=== PATIENT | male | born 1950 | race Two or more races ===

== ENCOUNTER 2018-09-24 11:11 | Inpatient (IN) | payer MEDICARE, OTHER ==
[~2018-09-24] VITALS: Ht 177.8 cm; Wt 83.9 kg
--- NOTE | 2018-09-24 11:30 | NUR ---
CATRINA 39N FROM HOME FOR LOW BS 39MG/DL, 250 ML D10 GIVEN IN THE FIELD, NEW MP=594LG/DL. PT STATES DIZZINESS AND PAIN 03/14. ABRASION TO RIGHT SIDE OF FACE. LIVES ALONE. 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 NO ACUTE DISTRESS NOTED. READY FOR EVAL.
[2018-09-24 12:07] LABS: BASOPHILS # (AUTO) 0.1 /CMM (0.0-0.2); BASOPHILS % (AUTO) 0.6 % (0.0-2.0); HEMATOCRIT 49 % (39-51); HEMOGLOBIN 17.6 g/dL (13.5-17.5); LYMPHOCYTES # (AUTO) 0.4 /CMM (0.8-4.8); LYMPHOCYTES % (AUTO) 4.2 % (20.0-44.0); MEAN CORPUSCULAR HGB CONC 36 g/dl (31.0-36.0); MEAN CORPUSCULAR VOLUME 92 fL (80-96); MONOCYTES # (AUTO) 0.7 /CMM (0.1-1.30); MONOCYTES % (AUTO) 6.8 % (2.0-12.0); NEUTROPHILS # (AUTO) 8.8 /CMM (1.8-8.9); NEUTROPHILS % (AUTO) 88.4 % (43.0-81.0); PLATELET COUNT (AUTO) 228 /CMM (150-450); RED BLOOD CELL COUNT(AUTO) 5.31 MIL/uL (4.5-6.0); WHITE BLOOD COUNT (AUTO) 9.9 K/uL (4.3-11.0)
[2018-09-24 12:20] LABS: ALANINE AMINOTRANSFERASE 36 U/L (12-78); ALBUMIN 4.2 g/dL (3.4-5.0); ALCOHOL, BLOOD < 3 mg/dL (0-0); ALKALINE PHOSPHATASE 73 U/L (46-116); ASPARTATE AMINOTRANSFERASE 31 U/L (15-37); BILIRUBIN,DIRECT 0.2 mg/dL (0.0-0.2); BILIRUBIN,TOTAL 0.6 mg/dL (0.2-1.0); CALCIUM, SERUM 10.7 mg/dL (8.5-10.1); CARBON DIOXIDE 34 mmol/L (21-32); CHLORIDE 89 mmol/L (98-107); CREATININE 1.8 mg/dL (0.6-1.3); POTASSIUM 3.2 mmol/L (3.5-5.1); SODIUM SERUM 134 mmol/L (136-145); TOTAL PROTEIN, SERUM 8.8 g/dL (6.4-8.2); UREA NITROGEN, BLOOD 64 mg/dL (7-18)
[2018-09-24 12:24] LABS: GLUCOSE 50 mg/dL (74-106)
--- NOTE | 2018-09-24 12:26 | NUR ---
ORDERED FOOD TRAY PER
--- NOTE | 2018-09-24 12:29 | NUR ---
PT TAKEN TO RADIOLOGY VIA C[facility]
[2018-09-24 12:47] LABS: THYROID STIMULATING HORMONE 3.403 uIU/mL (0.358-3.74)
--- NOTE | 2018-09-24 12:53 | NUR ---
PT BACK FROM [facility]. [facility] A[facility]. PROVIDED FOOD TRAY
[2018-09-24] MEDS ORDERED: INSU100V7 SQ (13:40)
[2018-09-24] MEDS ORDERED: INSU100I4 SQ (13:40)
[2018-09-24] MEDS ORDERED: METF-440 PO (13:40)
[2018-09-24] MEDS ORDERED: ATEN25TA PO (13:40)
--- NOTE | 2018-09-24 13:43 | NUR ---
GOT BED 312-2 RN IS BETZAIDA
[2018-09-24] MEDS ORDERED: DEXTROSE 50%-WATER 50 ML DISP.SYRIN IVP ONE (14:30)
[2018-09-24] MEDS ORDERED: POTASSIUM CHLORIDE 20 MEQ TAB.PRT.SR PO ONE ×2 (14:30→14:45)
[2018-09-24] MEDS ORDERED: IV D5/0.45 NACL 500 ML IV ONE (14:30)
[2018-09-24] MEDS ORDERED: DEXTROSE 50%-WATER 50 ML DISP.SYRIN ONE (14:45)
--- NOTE | 2018-09-24 14:48 | NUR ---
Patient is resting comfortably in bed with eyes closed. Easily aroused. VSS
[2018-09-24] MEDS ORDERED: ASPIRIN EC 325 MG TABLET.DR PO ONE (15:00)
[2018-09-24] MEDS ORDERED: ASPIRIN EC 325 MG TABLET.DR PO SCH (15:00)
--- NOTE | 2018-09-24 15:49 | NUR ---
REPORT GIVEN TO THA HUSTON FOR 312-2 TELE, AND PT TRANSFERRED TO FLOOR
--- NOTE | 2018-09-24 16:00 | NUR ---
MS NET ARCHITECT NOTE RECEIVED PT FROM ER VIA [facility] WITH DX OF HYPOGLYCEMIA. PT IS ALERT AND ORIENTED X4, DENIES N/V, SOB. PT STATES HE HAS PAIN ON THE RIGHT SIDE OF HIS FACE AND IS S/P UNWITNESSED FALL AT HOME "LAST NIGHT". PT ALSO REPORTS CHEST PAIN 7/10 THAT IS DULL, TIGHT, AND SPREADS FROM NIPPLE TO NIPPLE. PT PLACED ON DRYING RACK CHANGER AND IS SINUS TACHYCARDIA WITH HR 110. PT HAS TROPONIN DRAWN IN ER THAT IS NORMAL AND LAB IS AT THE BEDSIDE FOR A SECOND DRAW. PT HAS A LEFT AC #18G IV THAT IS PATENT, CLEAN, DRY AND INTACT. WOUND DOCUMENTATION COMPLETED PER PROTOCOL AND WOUND CONSULT ORDER PLACED. BELONGINGS REVIEWED. UNIT ORIENTATION PROVIDED INCLUDING USE OF CALL LIGHT AND INFORMED PT TO NOT EXIT THE BED WITHOUT A STAFF ASSISTANCE. BED IS LOCKED AND IN LOWEST POSITION, SIDE RAILS UP X2, BED ALARM ON, CALL LIGHT AND POSSESSIONS WITHIN REACH. PT VERBALIZED AGREEMENT AND UNDERSTANDING. AWAITING ADMISSION ORDERS FROM FREDRICK DEL CID NP.
--- NOTE | 2018-09-24 16:02 | NUR ---
MS RN NOTE INFORMED FREDRICK DEL CID NP OF PT ARRIVAL TO FLOOR AND NEED FOR ADMISSION ORDERS, AWAITING RESPONSE.
--- NOTE | 2018-09-24 16:09 | NUR ---
MS RN NOTE REPEAT 12 LEAD EKG ORDERED PER PROTOCOL.
--- NOTE | 2018-09-24 16:45 | NUR ---
MS PRODUCTION WOOD CRAFTSMAN ORDERS PER FREDRICK DEL CID NP SHE WILL WORK ON ADMISSION ORDERS. ORDERS RECEIVED FOR CARDIAC DIET AND ACCU CHECKS Q2H FOR NOW.
[2018-09-24] MEDS: BLOOD SUGAR DIAGNOSTIC 1 EACH STRIP IN SCH ×2 (17:00→21:11)
--- NOTE | 2018-09-24 18:07 | NUR ---
MS RN NOTE CONTACTED FREDRICK DEL CID NP REGARDING CP. AWAITING RESPONSE.
--- NOTE | 2018-09-24 18:17 | NUR ---
MS RN NOTE RECEIVED ORDERS FOR NITRO SL FOR CP FROM FREDRICK DEL CID NP. ORDERED NOTED AND CARRIED OUT.
[2018-09-24] MEDS: NITROGLYCERIN 0.4 MG/TAB BOTTLE SL PRN ×2 (18:29→18:46)
--- NOTE | 2018-09-24 18:29 | NUR ---
MS RN NOTE NITROGLYCERIN SL ADMINISTERED ORDERED FOR CP RATED 6/10. BP: 133/79, HR: 110. WILL CONTINUE TO MONITOR.
--- NOTE | 2018-09-24 18:47 | NUR ---
MS RN NOTE SECOND NITROGLYCERIN SL ADMINISTERED FOR CP 01/12. BP: 123/84.
--- NOTE | 2018-09-24 19:01 | NUR ---
MS RN NOTE INFORMED FREDRICK DEL CID NP REGARDING PT CP AFTER NITRO SL X2. PT STATES THAT HIS PAIN IS WORSE WITH COUGHING AND DEEP INHALATION AND IS 5/10. PT IS ALSO S/P UNWITNESSED FALL AT HOME PRIOR TO ADMISSION. PT HAS TWO NEGATIVE TROPONIN AND SECOND 12 LEAD EKG THAT SHOWS SINUS TACHYCARDIA. AWAITING RESPONSE.
--- NOTE | 2018-09-24 19:05 | NUR ---
MS RN CLOSING NOTE PT IN BED, ALERT AND ORIENTED X4. DENIES SOB, N/V. STATES THAT HE HAS CP THAT IS 5/10, DULL AND SPREADS BETWEEN BOTH NIPPLES AND DOES NOT RADIATE. PT HAS TWO NEGATIVE TROPONIN AND A SECOND 12 LEAD EKG THAT SHOWS SINUS TACHYCARDIA. LATEST BP IS 133/94, HR: 110. PT IS ON FURNACE MECHANIC ALSO WITH SINUS TACHYCARDIA, HR 100-110. LEFT AC #18G IV IS COMPLETING D5 1/2 NS FROM ER. LATEST ACCU CHECK IS 321. ALL NEEDS ATTENDED TO. BED IS LOCKED AND IN LOWEST POSITION, SIDE RAILS UP X2, BED ALARM ON, CALL LIGHT AND POSSESSIONS WITHIN REACH. PT IS STILL PENDING ADMISSION ORDERS FROM FREDRICK DEL CID NP. WILL ENDORSE TO JETTING MACHINE OPERATOR NURSE FOR CONTINUITY OF CARE.
--- NOTE | 2018-09-24 19:09 | NUR ---
MS RN NOTE FREDRICK SOTO NP AWARE OF PT CP. PER FREDRICK SHE IS REVIEWING CHART NOW FOR ADMISSION ORDERS.
[2018-09-24] MEDS ORDERED: IV D5/ 0.9% NACL 1,000 ML IV PRN (19:30)
[2018-09-24] MEDS ORDERED: MAGNESIUM HYDROXIDE 30 ML UDC PO PRN (19:30)
[2018-09-24] MEDS ORDERED: ACETAMINOPHEN 325 MG TABLET PO PRN (19:30)
[2018-09-24] MEDS ORDERED: Z GUARD REMEDY 2 OZ OINT TP PRN (19:30)
[2018-09-24] MEDS ORDERED: ONDANSETRON HCL/PF 4 MG/2 ML VIAL IVP PRN (19:30)
--- NOTE | 2018-09-24 19:30 | NUR ---
RN NOTES RECEIVED PT. AWAKE ON BED, A/OX3, HAS FACIAL DROOPS... PATIENT HAS REYNOLDS'S PALSY, ST ON TELE MONITOR HR-104-110, DENIES PAIN, NO SOB, CALL LIGHT WITHIN REACH, SIDERAILSUPX2, CONTINUE TO MONITOR
[2018-09-24 20:00] VITALS: BP 146/98
[2018-09-24 20:24] VITALS: BP 146/98
[2018-09-24] MEDS: IV NS 0.9% 1,000 ML IV PRN (21:11)
[2018-09-24] MEDS: HEPARIN SODIUM, PORCINE 5000 UNITS/1 ML VIAL SQ SCH (21:12)
--- NOTE | 2018-09-24 21:36 | NUR ---
RN NOTES ECOTRIN 162MG POX1 WAS NOT GIVEN EARLIER BY THE DAYSHIFT GOT AN ORDER FROM FREDRICK DEL CID TO REORDER AND GIVE IT TONIGHT... ORDER NOTED AND CARRIED OUT
[2018-09-24] MEDS ORDERED: ASPIRIN EC 81 MG TABLET.DR PO ONE (22:00)
[2018-09-24] MEDS: GABAPENTIN 100 MG CAPSULE PO SCH (22:11)
--- NOTE | 2018-09-25 | NUR ---
RN NOTES INFORMED BRIDGETTE ALFORD THE RESULT OF STAT GLUCOSE RANDOM 658, PATIENT IS ON ACCU-CHECK Q 4HRS BUT NO COVERAGE BECAUSE PATIENT DX. IS HYPOGLYCEMIA.. ROCÍO ANGELES CHANGE THE ORDER TO MILD SLIDING SCALE, ORDER NOTED AND CARRIED OUT
[2018-09-25 00:12] VITALS: BP 133/69
[2018-09-25] MEDS ORDERED: BLOOD SUGAR DIAGNOSTIC 1 EACH STRIP IN SCH (00:30)
[2018-09-25] MEDS ORDERED: DEXTROSE 50%-WATER 50 ML DISP.SYRIN IV PRN ×2 (00:30→07:00)
[2018-09-25] MEDS: INSULIN REGULAR, HUMAN 100 UNIT/ML 3 ML VIAL SQ PRN ×5 (00:39→18:15)
[2018-09-25] MEDS: ZOLPIDEM TARTRATE 5 MG TABLET PO PRN (00:40)
--- NOTE | 2018-09-25 00:40 | NUR ---
RN NOTES BLOOD SUGAR WAS MORE THAN 600, INFORMED MD- 10 UNITS OF REGULAR INSULIN WAS GIVEN, PROTOCOL INITIATED
[2018-09-25] MEDS: BLOOD SUGAR DIAGNOSTIC 1 EACH STRIP IN SCH ×2 (01:00→05:23)
--- NOTE | 2018-09-25 01:00 | NUR ---
RN NOTES ACCU CHECK WAS CHANGE TO AC&HS
[2018-09-25] MEDS: NITROGLYCERIN 0.4 MG/TAB BOTTLE SL PRN (04:17)
[2018-09-25 04:42] VITALS: BP 146/77
[2018-09-25] MEDS: IV NS 0.9% 1,000 ML IV PRN ×2 (05:23→15:31)
[2018-09-25 06:27] LABS: BASOPHILS % (AUTO) 0.1 % (0.0-2.0); HEMATOCRIT 40 % (39-51); HEMOGLOBIN 13.9 g/dL (13.5-17.5); LYMPHOCYTES # (AUTO) 0.8 /CMM (0.8-4.8); LYMPHOCYTES % (AUTO) 8.8 % (20.0-44.0); MEAN CORPUSCULAR HGB CONC 35 g/dl (31.0-36.0); MEAN CORPUSCULAR VOLUME 94 fL (80-96); MONOCYTES # (AUTO) 0.8 /CMM (0.1-1.30); MONOCYTES % (AUTO) 9.1 % (2.0-12.0); NEUTROPHILS # (AUTO) 7.6 /CMM (1.8-8.9); PLATELET COUNT (AUTO) 158 /CMM (150-450); RED BLOOD CELL COUNT(AUTO) 4.25 MIL/uL (4.5-6.0); WHITE BLOOD COUNT (AUTO) 9.2 K/uL (4.3-11.0)
--- NOTE | 2018-09-25 06:40 | NUR ---
THA NOTES INFORMED BRIDGETTE ALFORD REGARDING PT. BLOOD SUGAR OF 577 .. COVERED WITH 10UNITS OF REGULAR INSULIN... JUST WAITING FOR THE RESULT OF THE STAT GLUCOSE RANDOM... BRIDGETTE ALFORD ORDERED TO INCREASE TO MODERATE SLIDING SCALE-ORDER NOTED AND CARRIED OUT
--- NOTE | 2018-09-25 07:00 | NUR ---
RN NOTES ENDORSED TO DAYSHIFT NURSE .. STILL WAITING FOR THE GLUCOSE RANDOM RESULT. PT. DENIES PAIN, NO SOB, PT. NEEDS ATTENDED
[2018-09-25 07:05] LABS: CALCIUM, SERUM 8.7 mg/dL (8.5-10.1); CREATININE 2.7 mg/dL (0.6-1.3); MAGNESIUM 2.1 mg/dL (1.8-2.4); PHOSPHORUS 3.5 mg/dL (2.5-4.9); POTASSIUM 3.7 mmol/L (3.5-5.1)
--- NOTE | 2018-09-25 07:18 | NUR ---
RN OPENING NOTES RECEIVED PATIENT IN BED RESTING. A/OX3-4, ABLE TO MAKE NEEDS KNOWN. RIGHT SIDED WEAKNESS AND FACIAL DROOP NOTED, PATIENT HAS REYNOLDS'S PALSY. NOT IN ANY FORM OF DISTRESS, NO SOB. DENIED PAIN OR DISCOMFORT AT THIS TIME. IV ACCESS INTACT AND PATENT. KEPT PATIENT SAFE AND COMFORTABLE. BED IN LOW/LOCKED POSITION, SIDERAILS UPX2, CALL LIGHT IN REACH. WILL CONTINUE TO MONITOR ACCORDINGLY.
[2018-09-25 08:00] VITALS: BP 154/107
[2018-09-25] MEDS ORDERED: INSULIN GLARGINE, 100 UNIT/ML CARTRIDGE SQ ONE (08:00)
--- NOTE | 2018-09-25 08:14 | NUR ---
received critical value of blood glucose of 565. notified Jessi Hernandez NP. new orders noted and will carry out. orders: 15 unit regular insulin SQ and recheck in 30mins and 15 units Lantus SQ one time.
[2018-09-25] MEDS: GABAPENTIN 100 MG CAPSULE PO SCH (08:31)
[2018-09-25] MEDS: MECLIZINE HCL 12.5 MG TABLET PO PRN (08:31)
[2018-09-25] MEDS: HYDROCODONE/APAP 5/325MG 1 EACH TABLET PO PRN ×2 (08:32→16:44)
[2018-09-25] MEDS: ATENOLOL 50 MG TABLET PO SCH (08:33)
[2018-09-25] MEDS: HEPARIN SODIUM, PORCINE 5000 UNITS/1 ML VIAL SQ SCH ×2 (08:34→21:34)
[2018-09-25] MEDS ORDERED: METFORMIN 500 MG TABLET PO SCH (09:00)
--- NOTE | 2018-09-25 09:10 | NUR ---
RN NOTES BS rechecked 492.. Jessi Hernandez NP notified, "just monitor blood sugar".
[2018-09-25] MEDS: BLOOD SUGAR DIAGNOSTIC 1 EACH STRIP VI SCH ×4 (09:19→21:35)
--- NOTE | 2018-09-25 10:00 | NUR ---
iv acces on left ac not patent, removed iv, applied pressure. no complications. inserted new iv access on left forearm 22 gauge, intact and patent.
--- NOTE | 2018-09-25 14:08 | NUR ---
URINE COLLECTED, CALLED LAB FOR ORIGINATION SPECIALIST.
[2018-09-25] MEDS: CIPROFLOXACIN HCL 0.3% 5 ML BOTTLE RIGHTEYE SCH ×3 (15:28→21:43)
[2018-09-25 16:34] VITALS: BP 149/70
[2018-09-25 18:45] LABS: APPEARANCE,URINE SL CLOUDY (CLEAR); BILIRUBIN,URINE NEGATIVE (NEGATIVE); BLOOD, URINE NEGATIVE Ery/uL (NEGATIVE); COLOR,URINE YELLOW (YELLOW); KETONES,URINE NEGATIVE (NEGATIVE); LEUKOCYTE ESTERASE ,URINE NEGATIVE (NEGATIVE); NITRITE, URINE NEGATIVE (NEGATIVE); PH,URINE 5.5 (5.0-8.0); PROTEIN,URINE NEGATIVE (NEGATIVE); UGLUCOSE 3+ mg/dL (NEGATIVE); UROBILINOGEN,URINE 0.2 EU/dL (0.2)
--- NOTE | 2018-09-25 18:53 | NUR ---
RN CLOSING NOTES PATIENT IN BED RESTING. ALL NEEDS ATTENDED AND PROVIDED. ALL DUE MEDICATIONS ADMINISTERED ORDERED. KEPT PATIENT SAFE AND COMFORTABLE. BED IN LOW/LOCKED POSIITON, SIDERAILS UPX2 CALL LIGHT IN REACH. WILL ENDORSED TO NIGHT RN FOR ASUNCION.
[2018-09-25 19:21] LABS: BACTERIA,URINE None seen /HPF (None Seen); RBC,URINE 0-2 /HPF (0-2); SQUAMOUS EPITHELIAL CELL,UR Rare /HPF (None Seen); WBC,URINE 0-2 /HPF (0-3)
--- NOTE | 2018-09-25 19:30 | NUR ---
RN NOTES RECEIVED PT. SLEEPING BUT AROUSABLE, FACIAL DROOPS NOTED, PT. HAS REYNOLDS'S PALSY, DENIES PAIN, NO SOB, CALL LIGHT WITHIN REACH, SIDERAILSUPX2, CONTINUE TO MONITOR
[2018-09-25 20:00] VITALS: BP 114/68
[2018-09-25] MEDS: *INSULIN REGULAR(HUMULIN R)HUM 100 UNIT/ML VIAL SQ PRN (21:48)
[2018-09-25] MEDS: INSULIN GLARGINE, 100 UNIT/ML CARTRIDGE SQ SCH (21:50)
[2018-09-25 23:07] LABS: CREATININE, URINE 50.8 MG/DL (30.0-125.0); URINE TOTAL PROTEIN 20.2 mg/dL (0-11.9)
[2018-09-26] MEDS: CIPROFLOXACIN HCL 0.3% 5 ML BOTTLE RIGHTEYE SCH ×6 (02:06→22:23)
[2018-09-26] MEDS: HYDROCODONE/APAP 5/325MG 1 EACH TABLET PO PRN (04:15)
--- NOTE | 2018-09-26 04:50 | NUR ---
RN NOTES COMPLAINED OF TERRIBLE HEADACHE AND ASKED FOR NORCO, NORCO 5/325MG PO GIVEN ORDERED, V/S STABLE
[2018-09-26] MEDS: INSULIN REGULAR, HUMAN 100 UNIT/ML 3 ML VIAL SQ PRN ×3 (06:22→17:41)
[2018-09-26 06:40] LABS: BASOPHILS % (AUTO) 0.3 % (0.0-2.0); EOSINOPHILS % (AUTO) 1.1 % (0.0-6.0); HEMATOCRIT 36 % (39-51); HEMOGLOBIN 12.6 g/dL (13.5-17.5); LYMPHOCYTES # (AUTO) 1.7 /CMM (0.8-4.8); LYMPHOCYTES % (AUTO) 26.2 % (20.0-44.0); MEAN CORPUSCULAR HGB CONC 36 g/dl (31.0-36.0); MEAN CORPUSCULAR VOLUME 93 fL (80-96); MONOCYTES # (AUTO) 0.9 /CMM (0.1-1.30); MONOCYTES % (AUTO) 14.7 % (2.0-12.0); NEUTROPHILS # (AUTO) 3.7 /CMM (1.8-8.9); NEUTROPHILS % (AUTO) 57.7 % (43.0-81.0); PLATELET COUNT (AUTO) 159 /CMM (150-450); RED BLOOD CELL COUNT(AUTO) 3.82 MIL/uL (4.5-6.0); WHITE BLOOD COUNT (AUTO) 6.4 K/uL (4.3-11.0)
--- NOTE | 2018-09-26 06:45 | NUR ---
RN NOTES AWAKE PT. DENIES PAIN, NO SOB, MORNING CARE RENDERED, CALL LIGHT WITHIN REACH, SIDERAILSUPX2, PT. NEEDS ATTENDED
[2018-09-26] MEDS: BLOOD SUGAR DIAGNOSTIC 1 EACH STRIP VI SCH ×4 (06:53→22:28)
[2018-09-26 07:07] LABS: THYROID STIMULATING HORMONE 4.862 uIU/mL (0.358-3.74); URIC ACID 8.1 mg/dL (2.6-7.2)
[2018-09-26 07:24] LABS: BILIRUBIN,TOTAL 0.3 mg/dL (0.2-1.0); CALCIUM, SERUM 8.3 mg/dL (8.5-10.1); CREATININE 2.4 mg/dL (0.6-1.3); MAGNESIUM 2.7 mg/dL (1.8-2.4); PHOSPHORUS 3.5 mg/dL (2.5-4.9); TOTAL PROTEIN, SERUM 6.2 g/dL (6.4-8.2)
[2018-09-26 07:33] LABS: POTASSIUM 2.8 mmol/L (3.5-5.1)
--- NOTE | 2018-09-26 07:49 | NUR ---
MS RN OPENING NOTES RECEIVED PATIENT IN STABLE CONDITION. IN NO APPARENT DISTRESS. BEDSIDE RAILS ARE UPX2. BED IS LOCKED AND LOWERED. CALL LIGHT IS WITHIN REACH. IV LINE IS INTACT AND PATENT. WILL CONTINUE TO MONITOR PATIENT.
[2018-09-26 08:00] VITALS: BP 125/86
[2018-09-26] MEDS: ATENOLOL 50 MG TABLET PO SCH (09:31)
[2018-09-26] MEDS: POTASSIUM CHLORIDE 20 MEQ TAB.PRT.SR PO SCH ×3 (09:31→11:01)
[2018-09-26] MEDS: GABAPENTIN 100 MG CAPSULE PO SCH (09:32)
[2018-09-26] MEDS: HEPARIN SODIUM, PORCINE 5000 UNITS/1 ML VIAL SQ SCH ×2 (09:37→21:42)
[2018-09-26] MEDS: INSULIN GLARGINE, 100 UNIT/ML CARTRIDGE SQ SCH ×2 (09:41→22:27)
--- NOTE | 2018-09-26 10:35 | NUR ---
WOUND CARE CONSULT: PT PRESENTS WITH DRY ABRASION TO RT CHEEK AND BLANCHABLE REDNESS TO SACRUM AND RT FOOT, PRESENT ON ADMISSION. PT INDEPENDENT WITH BED MOBILITY AND CONTINENT. PT GETS UP TO BATHROOM WITH ASSISTANCE. CURRENT LITO SCORE IS 18. WILL SEE PRN. Addendum: 09/26/18 at 1036 by MC ZAVALA WNDNU Amended: Links added.
[2018-09-26 16:07] VITALS: BP 121/76
--- NOTE | 2018-09-26 18:40 | NUR ---
MS RN CLOSING NOTES PATIENT IS IN STABLE CONDITION. IN NO APPARENT DISTRESS. BEDSIDE RAILS ARE UPX2. BED IS LOCKED AND LOWERED. CALL LIGHT IS WITHIN REACH. IV LINE IS INTACT AND PATENT. WILL ENDORSE CARE TO CERTIFIED FRAUD EXAMINER NURSE FOR ASUNCION.
[2018-09-26] MEDS: IV NS 0.9% 1,000 ML IV PRN (19:24)
--- NOTE | 2018-09-26 19:40 | NUR ---
RN NOTES RECEIVED PATIENT IN STABLE CONDITION. IN NO APPARENT DISTRESS. ALL SAFETY MEASURES IN PLACED, BED IN LOW LOCK POSITION, BEDSIDE RAILS ARE UPX2. CALL LIGHT IS WITHIN REACH. IV LINE IS INTACT AND PATENT. WILL CONTINUE TO MONITOR ACCORDINGLY.
[2018-09-26 20:00] VITALS: BP 144/90
[2018-09-26] MEDS: *INSULIN REGULAR(HUMULIN R)HUM 100 UNIT/ML VIAL SQ PRN (22:26)
[2018-09-27] MEDS: ZOLPIDEM TARTRATE 5 MG TABLET PO PRN (00:36)
[2018-09-27] MEDS: CIPROFLOXACIN HCL 0.3% 5 ML BOTTLE RIGHTEYE SCH ×3 (02:21→09:05)
[2018-09-27] MEDS: HYDROCODONE/APAP 5/325MG 1 EACH TABLET PO PRN ×2 (02:55→10:33)
[2018-09-27] MEDS: IV NS 0.9% 1,000 ML IV PRN (04:05)
[2018-09-27 06:23] LABS: BASOPHILS % (AUTO) 0.5 % (0.0-2.0); EOSINOPHILS % (AUTO) 1.5 % (0.0-6.0); HEMATOCRIT 37 % (39-51); LYMPHOCYTES # (AUTO) 1.6 /CMM (0.8-4.8); LYMPHOCYTES % (AUTO) 25.7 % (20.0-44.0); MEAN CORPUSCULAR HGB CONC 35 g/dl (31.0-36.0); MEAN CORPUSCULAR VOLUME 93 fL (80-96); MONOCYTES # (AUTO) 0.9 /CMM (0.1-1.30); MONOCYTES % (AUTO) 14.3 % (2.0-12.0); NEUTROPHILS # (AUTO) 3.7 /CMM (1.8-8.9); PLATELET COUNT (AUTO) 180 /CMM (150-450); RED BLOOD CELL COUNT(AUTO) 3.99 MIL/uL (4.5-6.0); WHITE BLOOD COUNT (AUTO) 6.3 K/uL (4.3-11.0)
[2018-09-27] MEDS: BLOOD SUGAR DIAGNOSTIC 1 EACH STRIP VI SCH ×2 (06:28→12:33)
[2018-09-27] MEDS: INSULIN REGULAR, HUMAN 100 UNIT/ML 3 ML VIAL SQ PRN ×2 (06:31→12:35)
[2018-09-27 06:40] LABS: CALCIUM, SERUM 8.4 mg/dL (8.5-10.1); CREATININE 1.6 mg/dL (0.6-1.3); MAGNESIUM 2.6 mg/dL (1.8-2.4); PHOSPHORUS 2.8 mg/dL (2.5-4.9); POTASSIUM 3.9 mmol/L (3.5-5.1)
--- NOTE | 2018-09-27 07:27 | NUR ---
RN NOTES RECEIVED PATIENT IN STABLE CONDITION. IN NO APPARENT DISTRESS. ALL SAFETY MEASURES IN PLACED, BED IN LOW LOCK POSITION, BEDSIDE RAILS ARE UPX2. CALL LIGHT IS WITHIN REACH. IV LINE IS INTACT AND PATENT. ENDORSED TO AM NURSE FOR CONTINUITY OF CARE.
--- NOTE | 2018-09-27 07:30 | NUR ---
MS RN NOTES PATIENT RECEIVED RESTING INSIDE ROOM. AWAKE, ALERT AND ORIENTED, VERBALLY RESPONSIVE AND RESPONDS TO VERBAL AND TACTILE STIMULI. BREATHING EVEN AND UNLABORED. NO ACUTE DISTRESS AT THIS TIME. DENIES ANY PAIN OR DISCOMFORT. IV INTACT AND PATENT. NO CHANGES IN LOC NOTED AT THIS TIME. CONTINUE ON FLUID RESTRICTION OF 1000cc/DAY. PATIENT AWARE AND VERBALIZED UNDERSTANDING. WILL CONTINUE TO MONITOR. BED LOCKED AND IN LOW POSITION. BILATERAL UPPER SIDE RAILS UP AND LOCKED. CALL LIGHT WITHIN EASY REACH
[2018-09-27 08:00] VITALS: BP 174/108
[2018-09-27] MEDS: GABAPENTIN 100 MG CAPSULE PO SCH (08:49)
[2018-09-27 08:50] VITALS: BP 174/108
[2018-09-27] MEDS: ATENOLOL 50 MG TABLET PO SCH (08:50)
[2018-09-27] MEDS: INSULIN GLARGINE, 100 UNIT/ML CARTRIDGE SQ SCH (08:52)
[2018-09-27] MEDS: HEPARIN SODIUM, PORCINE 5000 UNITS/1 ML VIAL SQ SCH (08:52)
[2018-09-27] MEDS: MECLIZINE HCL 12.5 MG TABLET PO PRN (09:04)
[2018-09-27] MEDS ORDERED: Insulin Glargine,Hum SQ ×2 (13:58)
[2018-09-27] MEDS ORDERED: ATEN50TA PO (13:58)
[2018-09-27] MEDS ORDERED: INSU100V28 SQ (13:58)
[2018-09-27] MEDS ORDERED: GABA100C PO (13:58)
--- NOTE | 2018-09-27 14:54 | NUR ---
MS RN NOTES PATIENT FOR DISCHARGE TODAY. [facility] DISCHARGE INSTRUCTIONS AND EDUCATION GIVEN AND PATIENT VERBALIZED UNDERSTANDING. ALL BELONGINGS COMPLETE ON DISCHARGE, NO REPORT OF MISSING INVENTORY. IV IN PLACE AND FLUSHING WELL, DRESSING INTACT. PLACED CALL TO [facility] ([phone]) AND GAVE REPORT TO JHONNY ALMAZAN. NO NEW SKIN BREAKDOWN NOTED ON DISCHARGE, PATIENT LEFT UNIT AT 1425 VIA GURNEY IN STABLE CONDITION. BREATHING EVEN AND UNLABORED. NO ACUTE DISTRESS. MD MADE AWARE OF DISCHARGE
[2018-09-27 20:07] LABS: PTH, INTACT 48 pg/mL (15-65)
[2018-09-30 06:10] LABS: *SPE ALBUMIN 3.1 g/dL (2.9-4.4); *SPE ALPHA-1-GLOBULIN 0.2 g/dL (0.0-0.4); *SPE ALPHA-2-GLOBULIN 1.1 g/dL (0.4-1.0); *SPE BETA GLOBULIN 0.9 g/dL (0.7-1.3); *SPE GLOBULIN, TOTAL 2.8 g/dL (2.2-3.9); *SPE M-SPIKE Not Observed g/dL (Not Observed); *SPEGAMMA GLOBULIN 0.6 g/dL (0.4-1.8)
[2018-09-30 06:11] LABS: *SPE A/G RATIO 1.1 (0.7-1.7)
[2018-10-25] MEDS ORDERED: ASPI-1169 PO (10:52)
[2018-10-25] MEDS ORDERED: AMLO5TAB9 PO (10:52)
[2018-10-25] MEDS ORDERED: INSU100V28 SQ (10:52)
[2018-10-25] MEDS ORDERED: LOSA50TA3 PO (10:52)
[2018-10-25] MEDS ORDERED: ATOR40TA PO (10:52)
[2018-10-25] MEDS ORDERED: *INS REG3 SQ (10:52)
== END 2018-09-27 14:30 | DRG 637 ==
LOC: ER 11:11 → TELE 14:24 → MED 15:49 → TELE 18:17 → MED 09-25 10:35
PROVIDERS: ADMIT Nurse Practitioner Acute Care; ATTEND Nurse Practitioner Acute Care
DX: E11.649 Type 2 diabetes mellitus with hypoglycemia without coma (principal); G93.41 Metabolic encephalopathy; S02.92XA Unspecified fracture of facial bones, initial encounter for closed fracture; E87.1 Hypo-osmolality and hyponatremia; I12.9 Hypertensive chronic kidney disease with stage 1 through stage 4 chronic kidney disease, or unspecified chronic kidney disease; N18.9 Chronic kidney disease, unspecified; N17.0 Acute kidney failure with tubular necrosis; E11.22 Type 2 diabetes mellitus with diabetic chronic kidney disease; E87.6 Hypokalemia; E11.42 Type 2 diabetes mellitus with diabetic polyneuropathy; W18.30XA Fall on same level, unspecified, initial encounter; Y92.89 Other specified places as the place of occurrence of the external cause; Z79.4 Long term (current) use of insulin; T38.3X5A Adverse effect of insulin and oral hypoglycemic [antidiabetic] drugs, initial encounter
CPT/HCPCS: 36415; 70450-TC; 70486-TC; 71045-TC; 72125-TC; 76770-TC; 80048-TC; 80053-TC; 80061-TC; 80076-TC; 81000-TC; 82550-TC; 82570-TC; 82947-TC; 82962-TC; 83735-TC; 83970; 84100-TC; 84155; 84155-TC; 84165; 84300-TC; 84443-TC; 84484-TC; 84550-TC; 85025-TC; 85730-TC; 87081-TC; 93307-TC; G0378; G0480; J1644; J1815; J3490; J7030; J8597

== ENCOUNTER 2018-10-22 11:59 | Inpatient (IN) | payer MEDICARE, OTHER ==
[~2018-10-22] VITALS: Ht 177.8 cm; Wt 89.6 kg
[~2018-10-22 11:59] MED LIST: ATEN50TA PO; GABA100C PO; INSU100V28 SQ; Insulin Glargine,Hum SQ
--- NOTE | 2018-10-22 12:10 | NUR ---
BIBRA FROM [facility] C/O HIGH BP OF 214/118, AND R SIDE OF THE HEAD PAIN AND RINGING OF THE EAR. PATIENT A/OX4, NAD, PLACED ON THE MONITOR. NO SOB NOTED. WILL MONITOR.
[2018-10-22 12:23] LABS: BASOPHILS % (AUTO) 0.4 % (0.0-2.0); EOSINOPHILS % (AUTO) 2.3 % (0.0-6.0); HEMATOCRIT 40 % (39-51); HEMOGLOBIN 13.7 g/dL (13.5-17.5); LYMPHOCYTES # (AUTO) 1.4 /CMM (0.8-4.8); LYMPHOCYTES % (AUTO) 31.2 % (20.0-44.0); MEAN CORPUSCULAR HGB CONC 35 g/dl (31.0-36.0); MEAN CORPUSCULAR VOLUME 93 fL (80-96); MONOCYTES # (AUTO) 0.4 /CMM (0.1-1.30); MONOCYTES % (AUTO) 8.7 % (2.0-12.0); NEUTROPHILS # (AUTO) 2.6 /CMM (1.8-8.9); NEUTROPHILS % (AUTO) 57.4 % (43.0-81.0); PLATELET COUNT (AUTO) 216 /CMM (150-450); RED BLOOD CELL COUNT(AUTO) 4.26 MIL/uL (4.5-6.0); WHITE BLOOD COUNT (AUTO) 4.6 K/uL (4.3-11.0)
[2018-10-22] MEDS ORDERED: hydrALAZINE HCL IV 20 MG VIAL IV ONE ×2 (12:30→15:30)
[2018-10-22] MEDS ORDERED: hydrALAZINE HCL IV 20 MG VIAL ONE (12:37)
[2018-10-22 12:42] LABS: ALANINE AMINOTRANSFERASE 25 U/L (12-78); ALBUMIN 3.5 g/dL (3.4-5.0); ALKALINE PHOSPHATASE 72 U/L (46-116); ASPARTATE AMINOTRANSFERASE 12 U/L (15-37); BILIRUBIN,DIRECT 0.1 mg/dL (0.0-0.2); BILIRUBIN,TOTAL 0.3 mg/dL (0.2-1.0); CALCIUM, SERUM 9.2 mg/dL (8.5-10.1); CARBON DIOXIDE 32 mmol/L (21-32); CHLORIDE 99 mmol/L (98-107); POTASSIUM 4.3 mmol/L (3.5-5.1); SODIUM SERUM 137 mmol/L (136-145); TOTAL PROTEIN, SERUM 7.4 g/dL (6.4-8.2); UREA NITROGEN, BLOOD 18 mg/dL (7-18)
[2018-10-22 12:46] LABS: GLUCOSE 462 mg/dL (74-106)
[2018-10-22] MEDS ORDERED: IV NS 0.9% 1,000 ML BAG IV ONE (13:00)
[2018-10-22] MEDS ORDERED: CT SWABBABLE VALVE TRANS SET 1 EA INFUS.SET MC ONE (13:16)
[2018-10-22] MEDS ORDERED: IOHEXOL-350 100 ML VIAL IV ONE (13:17)
[2018-10-22] MEDS ORDERED: IV NS 0.9% 250 ML IV ONE (13:17)
[2018-10-22] MEDS ORDERED: ZOLP5TAB2 PO (16:22)
[2018-10-22] MEDS ORDERED: METF-440 PO (16:29)
[2018-10-22] MEDS ORDERED: MULT-447 PO (16:29)
[2018-10-22] MEDS ORDERED: INSU100V7 SQ ×2 (16:29→16:52)
[2018-10-22] MEDS ORDERED: CHOL100044 PO (16:29)
[2018-10-22] MEDS ORDERED: Z GUARD REMEDY 2 OZ OINT TP PRN (16:30)
[2018-10-22] MEDS ORDERED: ONDANSETRON HCL/PF 4 MG/2 ML VIAL IVP PRN (16:30)
[2018-10-22] MEDS ORDERED: MAGNESIUM HYDROXIDE 30 ML UDC PO PRN (16:30)
[2018-10-22] MEDS ORDERED: MAG HYDROX/AL HYDROX/SIMETH 30 ML UDC PO PRN (16:30)
--- NOTE | 2018-10-22 16:45 | NUR ---
PATIENT TRANSFERRED TO ROOM 321-2 VIA ACLS PROTOCOL. PATIENT A/OX4, NO DISTRESS NOTED, BP IMPROVED. ENDORSED TO ROSALINA FOR CONTINUITY OF CARE.
[2018-10-22] MEDS ORDERED: HYDR-4384 PO (16:52)
[2018-10-22] MEDS ORDERED: NITR0.4T48 SL (16:52)
[2018-10-22] MEDS ORDERED: SENN-168 PO (16:52)
[2018-10-22] MEDS ORDERED: ACET325T53 PO (16:52)
[2018-10-22] MEDS ORDERED: CIPR7.5D EACH EAR (16:52)
[2018-10-22] MEDS ORDERED: BISA10SU61 RC (16:52)
[2018-10-22] MEDS ORDERED: NA P133E RC (16:52)
[2018-10-22] MEDS ORDERED: DOCU-141 PO (16:52)
[2018-10-22] MEDS ORDERED: GABA-532 PO (16:52)
[2018-10-22] MEDS ORDERED: MAGN400O6 PO (16:52)
[2018-10-22] MEDS ORDERED: BLOO-668 IN (16:54)
[2018-10-22] MEDS ORDERED: NITROGLYCERIN 0.4 MG/TAB BOTTLE SL ONE (17:00)
[2018-10-22] MEDS ORDERED: DEXTROSE 50%-WATER 50 ML DISP.SYRIN IV PRN (17:00)
[2018-10-22 17:10] VITALS: BP 198/116
--- NOTE | 2018-10-22 17:10 | NUR ---
TELE/RN NOTE THE PATIENT IS RECEIVED IN A GURNEY. ALERT AND ORIENTED X4. DENIES SOB. RESPIRATION REGULAR AND UNLABORED. DENIES PAIN. RAC G 200 PATENT AND SALINE LOCKED. ROOM AND UNIT ORIENTATION PROVIDED AND THE PATIENT VERBALIZED UNDERSTANDING. BED LOW AND LOCKED. SIDE RAILS UP X2. CALL LIGHT WITHIN REACH. WILL CONTINUE TO MONITOR.
[2018-10-22] MEDS: ACETAMINOPHEN 325 MG TABLET PO PRN (17:19)
--- NOTE | 2018-10-22 17:22 | NUR ---
TELE/RN NOTE THE PATIENT COMPLAINED OF HEAD ACHE 10/12. TYLENOL 650 MG PO GIVEN. WILL CONTINUE TO MONITOR.
[2018-10-22] MEDS ORDERED: INSULIN REGULAR, HUMAN 100 UNIT/ML 3 ML VIAL SQ ONE (17:30)
--- NOTE | 2018-10-22 17:30 | NUR ---
TELE/RN NOTE THE PATIENT AGREED ONLY TO HAVE PARTIAL SKIN ASSESSMENT WHICH INCLUDED, BOTH FEET AND UPPER EXTREMITIES AND UPPER BODY. NO SKIN PROBLEMS NOTED ON ABOVE NOTED LOCATIONS.
--- NOTE | 2018-10-22 17:45 | NUR ---
MS/RN NOTE THE PATIENT VERBALIZED TYLENOL BEING EFFECTIVE AND RATED PAIN 0/10.
[2018-10-22] MEDS: CIPROFLOXACIN HCL 0.3% 5 ML BOTTLE OT SCH (17:48)
[2018-10-22] MEDS: BLOOD SUGAR DIAGNOSTIC 1 EACH STRIP VI SCH ×2 (17:48→21:50)
--- NOTE | 2018-10-22 18:16 | NUR ---
MS/RN NOTE THE PATIENT ALERT AND ORIENTED X4. RECEIVING OXYGEN AT 2L/MIN VIA NASAL CANNULA AND SATURATION IS AT 97%. DENIES SOB. RESPIRATION REGULAR AND UNLABORED. DENIES PAIN. DENIES PAIN. RIGHT HAND G 20 AND IV FLUID INFUSING WITH NO S/S INFILTRATION. BED LOW AND LOCKED. SIDE RAILS UP X3. CALL LIGHT WITHIN REACH. WILL ENDORSE TO MOUNTER AUTOMATIC. Addendum: 10/22/18 at 1818 by FOREIGN DIAZ RN ENTERED ON WRONG PATIENT. CORRECTION DONE.
--- NOTE | 2018-10-22 18:30 | NUR ---
MS/RN NOTE THE PATIENT ALERT AND ORIENTED X4. IN ROOM AIR AND SATURATION IS AT 98%. DENIES SOB. RESPIRATION REGULAR AND UNLABORED. DENIES PAIN. RAC G 20 PATENT AND SALINE LOCKED. BED LOW AND LOCKED. SIDE RAILS UP X2. CALL LIGHT WITHIN REACH. WILL ENDORSE TO PARKING LOT SUPERVISOR.
[2018-10-22 18:31] VITALS: BP 153/86
--- NOTE | 2018-10-22 18:40 | NUR ---
TELE/RN NOTE BLOOD SUGAR 375. REFUSED SLIDING SCALE INSULIN DESPITE EXPLAINING RISKS AND BENEFITS.
--- NOTE | 2018-10-22 18:51 | NUR ---
TELE/RN NOTE EXTERNAL TELE BOX READING IS SR 69 WITH BBB. THE PATIENT IN NO APPARENT DISTRESS.
--- NOTE | 2018-10-22 19:05 | NUR ---
CREDIT INVESTIGATOR OPENING NOTES Received patient in bed, alert, oriented x 4. Not in any distress. No complaints as of this time. Tele monitor in place- sinus rhythm 71. Safety measures in place. Bed in low, locked position. Will continue to monitor accordingly
[2018-10-22 20:00] VITALS: BP 162/84
[2018-10-22] MEDS: SENNOSIDES 8.6 MG TABLET PO SCH (21:37)
[2018-10-22] MEDS: INSULIN GLARGINE, 100 UNIT/ML CARTRIDGE SQ SCH (21:44)
--- NOTE | 2018-10-22 21:45 | NUR ---
RN NOTES BSL checked- 197mg/dL. Lantus 37units given as ordered. Patient refused regular insulin with sliding scale. Snacks provided.
[2018-10-22] MEDS: hydrALAZINE HCL IV 20 MG VIAL IV PRN (21:59)
[2018-10-22] MEDS: *INSULIN REGULAR(HUMULIN R)HUM 100 UNIT/ML VIAL SQ PRN (23:13)
[2018-10-22] MEDS: HYDROCODONE/APAP 5/325MG 1 EACH TABLET PO PRN (23:16)
--- NOTE | 2018-10-22 23:17 | NUR ---
RN NOTES Patient c/o headache, 03/14. Requesting for norco. As per patient, it is what helps him. Green 5-325 given as ordered. Will continue to monitor accordingly
[2018-10-23 00:04] VITALS: BP 139/82
[2018-10-23] MEDS: ACETAMINOPHEN 325 MG TABLET PO PRN (02:26)
--- NOTE | 2018-10-23 02:31 | NUR ---
RN NOTES Patient c/o nausea and vomiting x 1- small amount. Zofran 4mg given as ordered
[2018-10-23] MEDS: HYDROCODONE/APAP 5/325MG 1 EACH TABLET PO PRN ×2 (04:26→09:09)
[2018-10-23] MEDS: hydrALAZINE HCL IV 20 MG VIAL IV PRN ×2 (04:45→17:58)
--- NOTE | 2018-10-23 04:46 | NUR ---
RN NOTES Patient's BP- 174/101, HR- 71. Hydralazine 10mg IV given as ordered. Will continue to monitor
[2018-10-23 05:00] VITALS: BP 147/94
--- NOTE | 2018-10-23 05:54 | NUR ---
RN NOTES V/S rechecked: BP- 147/94, HR- 75
[2018-10-23] MEDS: BLOOD SUGAR DIAGNOSTIC 1 EACH STRIP VI SCH ×4 (06:30→21:43)
[2018-10-23 06:32] LABS: BASOPHILS % (AUTO) 0.4 % (0.0-2.0); EOSINOPHILS % (AUTO) 2.6 % (0.0-6.0); HEMATOCRIT 38 % (39-51); HEMOGLOBIN 13.5 g/dL (13.5-17.5); LYMPHOCYTES # (AUTO) 1.6 /CMM (0.8-4.8); MEAN CORPUSCULAR HGB CONC 35 g/dl (31.0-36.0); MEAN CORPUSCULAR VOLUME 91 fL (80-96); MONOCYTES # (AUTO) 0.5 /CMM (0.1-1.30); NEUTROPHILS # (AUTO) 3.5 /CMM (1.8-8.9); PLATELET COUNT (AUTO) 209 /CMM (150-450); RED BLOOD CELL COUNT(AUTO) 4.19 MIL/uL (4.5-6.0); WHITE BLOOD COUNT (AUTO) 5.7 K/uL (4.3-11.0)
[2018-10-23] MEDS: INSULIN REGULAR, HUMAN 100 UNIT/ML 3 ML VIAL SQ PRN ×3 (06:43→17:36)
[2018-10-23 06:48] LABS: ALBUMIN 3.5 g/dL (3.4-5.0); BILIRUBIN,TOTAL 0.5 mg/dL (0.2-1.0); CALCIUM, SERUM 9.3 mg/dL (8.5-10.1); CREATININE 0.8 mg/dL (0.6-1.3); MAGNESIUM 1.7 mg/dL (1.8-2.4); PHOSPHORUS 3.7 mg/dL (2.5-4.9); POTASSIUM 3.9 mmol/L (3.5-5.1); TOTAL PROTEIN, SERUM 7.1 g/dL (6.4-8.2)
[2018-10-23 06:49] LABS: THYROID STIMULATING HORMONE 4.019 uIU/mL (0.358-3.74)
--- NOTE | 2018-10-23 07:37 | NUR ---
STUDENT DEVELOPMENT SPECIALIST CLOSING NOTES Patient resting in bed, alert, oriented x 4. Breathing even and unlabored. Not in any distress. Tele box in place, SR 78. No complaints as of this time. Call gutiérrez within reach. Bed in low, locked position. Endorsed ASUNCION to AM RN
--- NOTE | 2018-10-23 07:50 | NUR ---
MS RN RECEIVED ON BED, AWAKE,ALERT,ORIENTED X4,NOT IN ANY FORM OF DISTRESS,RESPIRATIONS EVEN AND UNLABORED, NO SOB NOTED, LUNGS ARE CLEAR,ABDOMEN SOFT,POSITIVE BOWEL SOUNDS,DENIES PAIN AT THIS TIME, WILL MONITOR PATIENT'S CONDITION.
[2018-10-23 08:00] VITALS: BP 161/93
[2018-10-23] MEDS: DOCUSATE SODIUM 100 MG CAPSULE PO SCH (09:04)
[2018-10-23] MEDS: GABAPENTIN 100 MG CAPSULE PO SCH (09:04)
[2018-10-23] MEDS: PANTOPRAZOLE 40 MG TABLET.DR PO SCH (09:04)
[2018-10-23] MEDS: ATENOLOL 50 MG TABLET PO SCH (09:05)
[2018-10-23] MEDS: INSULIN GLARGINE, 100 UNIT/ML CARTRIDGE SQ SCH ×2 (09:10→22:05)
[2018-10-23] MEDS: CIPROFLOXACIN HCL 0.3% 5 ML BOTTLE OT SCH ×2 (09:18→17:14)
--- NOTE | 2018-10-23 09:30 | NUR ---
MS ALMAZAN BREAKFAST SERVED,DUE MEDS GIVEN, TOLERATED WELL.
--- NOTE | 2018-10-23 10:20 | NUR ---
MS RN WAS SEEN BY VALERI Madsen/ ORDERS MADE AND CARRIED OUT.
[2018-10-23] MEDS: Magnesium 1GM/D5W 100ML PREMIX 100 ML IV SCH ×2 (11:38→12:54)
--- NOTE | 2018-10-23 12:00 | NUR ---
MS ALMAZAN BS - 295-9 UNITE OF REGULAR INSULIN GIVEN.
[2018-10-23] MEDS: LOSARTAN POTASSIUM 50 MG TABLET PO SCH (12:02)
[2018-10-23] MEDS: ASPIRIN 81 MG TAB.CHEW PO SCH (12:02)
[2018-10-23] MEDS: AMLODIPINE BESYLATE 5 MG TABLET PO SCH (12:02)
[2018-10-23] MEDS ORDERED: Magnesium 1GM/D5W 100ML PREMIX 100 ML IV SCH (13:30)
[2018-10-23 16:11] VITALS: BP 167/99
--- NOTE | 2018-10-23 16:57 | NUR ---
ms rn on bed,no distress noted.
--- NOTE | 2018-10-23 17:30 | NUR ---
MS RN BS 263 -9 UNITS GIVEN.
--- NOTE | 2018-10-23 18:46 | NUR ---
MS RN ON BED,NO DISTRESS NOTED.
--- NOTE | 2018-10-23 19:05 | NUR ---
MS RN NOTES RECEIVED PT IN BED AND AWAKE. PT A/O X4. RESPIRATIONS EVEN AND UNLABORED WITH NO S/S OF ACUTE DISTRESS OR SOB NOTED. PT DENIES PAIN AT THIS TIME. CALL LIGHT WITHIN REACH. WILL CONTINUE TO MONITOR.
[2018-10-23 20:00] VITALS: BP 155/90
[2018-10-23 20:25] LABS: APPEARANCE,URINE SL CLOUDY (CLEAR); BILIRUBIN,URINE NEGATIVE (NEGATIVE); BLOOD, URINE NEGATIVE Ery/uL (NEGATIVE); COLOR,URINE YELLOW (YELLOW); KETONES,URINE NEGATIVE (NEGATIVE); LEUKOCYTE ESTERASE ,URINE NEGATIVE (NEGATIVE); NITRITE, URINE NEGATIVE (NEGATIVE); PROTEIN,URINE NEGATIVE (NEGATIVE); UGLUCOSE 2+ mg/dL (NEGATIVE); UROBILINOGEN,URINE 0.2 EU/dL (0.2)
[2018-10-23 20:45] LABS: RBC,URINE 0-2 /HPF (0-2)
[2018-10-23 20:46] LABS: BACTERIA,URINE Rare /HPF (None Seen); SQUAMOUS EPITHELIAL CELL,UR None Seen /HPF (None Seen); WBC,URINE 0-2 /HPF (0-3)
[2018-10-23] MEDS: SENNOSIDES 8.6 MG TABLET PO SCH (21:42)
[2018-10-23] MEDS: ATORVASTATIN 40 MG TABLET PO SCH (21:42)
[2018-10-23] MEDS: *INSULIN REGULAR(HUMULIN R)HUM 100 UNIT/ML VIAL SQ PRN (21:58)
--- NOTE | 2018-10-23 22:00 | NUR ---
MS RN NOTES LANTUS MEDICATION GIVEN 37 UNITS FOR 2200. MEDICATION WAS NOT ABLE TO BE SCANNED SO MANUAL INPUT WAS USED.
[2018-10-24] MEDS: ACETAMINOPHEN 325 MG TABLET PO PRN (02:28)
[2018-10-24] MEDS: hydrALAZINE HCL IV 20 MG VIAL IV PRN (02:30)
[2018-10-24] MEDS: HYDROCODONE/APAP 5/325MG 1 EACH TABLET PO PRN ×2 (04:00→07:51)
[2018-10-24] MEDS: BLOOD SUGAR DIAGNOSTIC 1 EACH STRIP VI SCH (06:43)
--- NOTE | 2018-10-24 06:53 | NUR ---
MS RN NOTES PT IN BED SLEEPING BUT EASILY AWOKEN VERBALLY OR BY TOUCH. PT A/O X4. RESPIRATIONS EVEN AND UNLABORED WITH NO S/S OF ACUTE DISTRESS OR SOB THROUGHOUT SHIFT. HYDRALAZINE WAS GIVEN FOR BP MANAGEMENT, TOLERATED WELL. NORCO WAS GIVEN FOR HEADACHE, TOLERATED WELL. CALL LIGHT WITHIN REACH. WILL ENDORSE TO ONCOMING NURSE FOR CONTINUATION OF CARE.
--- NOTE | 2018-10-24 07:30 | NUR ---
m/s rubber goods inspector tester: initial assessment received pt in bed awake, a/ox4. c/o headache at this time, but denies n/v. pt refused tylenol when offered, but will take norco when it's due. instructed to call for assistance. will continue to monitor.
[2018-10-24 07:39] LABS: HEMATOCRIT 39 % (39-51); HEMOGLOBIN 13.8 g/dL (13.5-17.5); MEAN CORPUSCULAR HGB CONC 36 g/dl (31.0-36.0); MEAN CORPUSCULAR VOLUME 91 fL (80-96); RED BLOOD CELL COUNT(AUTO) 4.29 MIL/uL (4.5-6.0); WHITE BLOOD COUNT (AUTO) 5.6 K/uL (4.3-11.0)
[2018-10-24 07:40] LABS: BASOPHILS % (AUTO) 0.4 % (0.0-2.0); EOSINOPHILS % (AUTO) 2.9 % (0.0-6.0); LYMPHOCYTES # (AUTO) 1.5 /CMM (0.8-4.8); LYMPHOCYTES % (AUTO) 27.1 % (20.0-44.0); MONOCYTES # (AUTO) 0.4 /CMM (0.1-1.30); MONOCYTES % (AUTO) 7.3 % (2.0-12.0); NEUTROPHILS # (AUTO) 3.5 /CMM (1.8-8.9); NEUTROPHILS % (AUTO) 62.3 % (43.0-81.0); PLATELET COUNT (AUTO) 199 /CMM (150-450)
[2018-10-24] MEDS: PANTOPRAZOLE 40 MG TABLET.DR PO SCH (07:44)
[2018-10-24 07:51] LABS: CALCIUM, SERUM 9.2 mg/dL (8.5-10.1); CREATININE 0.8 mg/dL (0.6-1.3); MAGNESIUM 1.7 mg/dL (1.8-2.4)
[2018-10-24] MEDS: INSULIN REGULAR, HUMAN 100 UNIT/ML 3 ML VIAL SQ PRN ×3 (07:52→17:05)
[2018-10-24 08:00] VITALS: BP 181/100
[2018-10-24] MEDS: GABAPENTIN 100 MG CAPSULE PO SCH (08:37)
[2018-10-24] MEDS: AMLODIPINE BESYLATE 5 MG TABLET PO SCH ×2 (08:37→16:21)
[2018-10-24] MEDS: ASPIRIN 81 MG TAB.CHEW PO SCH (08:37)
[2018-10-24] MEDS: ATENOLOL 50 MG TABLET PO SCH (08:37)
[2018-10-24] MEDS: LOSARTAN POTASSIUM 50 MG TABLET PO SCH ×2 (08:37→16:21)
[2018-10-24] MEDS: DOCUSATE SODIUM 100 MG CAPSULE PO SCH (08:37)
[2018-10-24] MEDS: CIPROFLOXACIN HCL 0.3% 5 ML BOTTLE OT SCH ×2 (08:38→16:22)
[2018-10-24] MEDS: INSULIN GLARGINE, 100 UNIT/ML CARTRIDGE SQ SCH ×2 (08:45→22:24)
--- NOTE | 2018-10-24 08:50 | NUR ---
m/s associate artistic director: notes cecilia (acnp) here and received verbal order to give magnesium oxide 800mg po x 1 and change sliding scale to aggressive. orders read back and carried out. pt made aware.
[2018-10-24] MEDS ORDERED: MAGNESIUM OXIDE 400 MG TABLET PO ONE (09:00)
[2018-10-24] MEDS ORDERED: DEXTROSE 50%-WATER 50 ML DISP.SYRIN IV PRN (09:00)
[2018-10-24] MEDS ORDERED: *INSULIN REGULAR(HUMULIN R)HUM 100 UNIT/ML VIAL SQ PRN (09:00)
--- NOTE | 2018-10-24 10:00 | NUR ---
m/s phlebotomy support tech: md visit cecilia at bedside at this time and aware of b/p this morning with no new order at this time. will continue to monitor.
[2018-10-24 10:30] VITALS: BP 140/82
[2018-10-24] MEDS: BLOOD SUGAR DIAGNOSTIC 1 EACH STRIP IN SCH ×3 (11:52→22:20)
--- NOTE | 2018-10-24 12:00 | NUR ---
m/s security consultant: notes lunch served. no c/o pain or any discomfort. instructed to call for assistance. will monitor.
--- NOTE | 2018-10-24 14:30 | NUR ---
m/s blind aide: cardio f/u seen and examined by dr. beltran with new orders. orders acknowledged.
[2018-10-24 16:11] VITALS: BP 154/87
--- NOTE | 2018-10-24 16:30 | NUR ---
m/s automobiles salesperson: notes resting comfortable in bed. no distress noted. will continue to monitor.
--- NOTE | 2018-10-24 18:43 | NUR ---
m/s pension administrator: notes resting comfortable in bed. needs attended. no apparent distress noted. call light within reach.
--- NOTE | 2018-10-24 19:05 | NUR ---
MS RN NOTES RECEIVED PT IN BED AND AWAKE. PT A/O X4 AND ABLE TO MAKE NEEDS KNOWN. RESPIRATIONS EVEN AND UNLABORED WITH NO S/S OF ACUTE DISTRESS OR SOB NOTED. PT WITH RAC #20G PATENT AND INTACT, HL. PT DENIES PAIN AT THIS TIME. CALL LIGHT WITHIN REACH. WILL CONTINUE TO MONITOR.
--- NOTE | 2018-10-24 19:05 | NUR ---
m/s filter tank operator: notes bedside report given to dav (rn) for continuity of care.
[2018-10-24 20:00] VITALS: BP 150/87
[2018-10-24] MEDS: SENNOSIDES 8.6 MG TABLET PO SCH (22:20)
[2018-10-24] MEDS: ATORVASTATIN 40 MG TABLET PO SCH (22:20)
[2018-10-25] VITALS: BP 115/67
[2018-10-25 04:00] VITALS: BP 128/68
[2018-10-25] MEDS: HYDROCODONE/APAP 5/325MG 1 EACH TABLET PO PRN (04:44)
[2018-10-25] MEDS: BLOOD SUGAR DIAGNOSTIC 1 EACH STRIP IN SCH ×2 (06:46→12:03)
--- NOTE | 2018-10-25 07:02 | NUR ---
MS RN NOTES PT IN BED SLEEPING BUT EASILY AWOKEN VERBALLY OR BY TOUCH. PT A/O X4 AND ABLE TO MAKE NEEDS KNOWN. RESPIRATIONS EVEN AND UNLABORED WITH NO S/S OF ACUTE DISTRESS OR SOB NOTED THROUGHOUT SHIFT. PT WITH RAC #20G PATENT AND INTACT, HL. PT DENIES PAIN AT THIS TIME. CALL LIGHT WITHIN REACH. WILL ENDORSE TO ONCOMING NURSE FOR CONTINUATION OF CARE.
[2018-10-25 07:36] LABS: BASOPHILS % (AUTO) 0.4 % (0.0-2.0); EOSINOPHILS % (AUTO) 2.7 % (0.0-6.0); HEMATOCRIT 38 % (39-51); HEMOGLOBIN 13.3 g/dL (13.5-17.5); LYMPHOCYTES # (AUTO) 1.7 /CMM (0.8-4.8); LYMPHOCYTES % (AUTO) 32.8 % (20.0-44.0); MEAN CORPUSCULAR HGB CONC 35 g/dl (31.0-36.0); MEAN CORPUSCULAR VOLUME 91 fL (80-96); MONOCYTES # (AUTO) 0.4 /CMM (0.1-1.30); MONOCYTES % (AUTO) 8.8 % (2.0-12.0); NEUTROPHILS # (AUTO) 2.8 /CMM (1.8-8.9); NEUTROPHILS % (AUTO) 55.3 % (43.0-81.0); PLATELET COUNT (AUTO) 201 /CMM (150-450); RED BLOOD CELL COUNT(AUTO) 4.15 MIL/uL (4.5-6.0); WHITE BLOOD COUNT (AUTO) 5.1 K/uL (4.3-11.0)
[2018-10-25 07:37] LABS: CALCIUM, SERUM 9.3 mg/dL (8.5-10.1); MAGNESIUM 1.8 mg/dL (1.8-2.4); POTASSIUM 4.2 mmol/L (3.5-5.1)
[2018-10-25] MEDS: INSULIN REGULAR, HUMAN 100 UNIT/ML 3 ML VIAL SQ PRN ×2 (07:37→12:04)
[2018-10-25 08:00] VITALS: BP 156/95
--- NOTE | 2018-10-25 08:02 | NUR ---
MS RN NOTES PATIENT RECEIVED RESTING INSIDE ROOM. AWAKE, ALERT AND ORIENTED, VERBALLY RESPONSIVE AND RESPONDS TO VERBAL AND TACTILE STIMULI. BREATHING EVEN AND UNLABORED. NO CHANGES IN LOC NOTED AT THIS TIME. DENIES ANY PAIN OR DISCOMFORT. PATIENT CALM AND RELAXED. WILL CONTINUE TO MONITOR. BED LOCKED AND IN LOW POSITION. BILATERAL UPPER SIDE RAILS UP AND LOCKED. CALL LIGHT WITHIN EASY REACH
[2018-10-25] MEDS: PANTOPRAZOLE 40 MG TABLET.DR PO SCH (08:32)
[2018-10-25] MEDS: DOCUSATE SODIUM 100 MG CAPSULE PO SCH (08:32)
[2018-10-25] MEDS: LOSARTAN POTASSIUM 50 MG TABLET PO SCH (08:32)
[2018-10-25] MEDS: GABAPENTIN 100 MG CAPSULE PO SCH (08:32)
[2018-10-25] MEDS: CIPROFLOXACIN HCL 0.3% 5 ML BOTTLE OT SCH (08:32)
[2018-10-25] MEDS: AMLODIPINE BESYLATE 5 MG TABLET PO SCH (08:33)
[2018-10-25] MEDS: ASPIRIN 81 MG TAB.CHEW PO SCH (08:33)
[2018-10-25] MEDS: ATENOLOL 50 MG TABLET PO SCH (08:33)
[2018-10-25] MEDS: INSULIN GLARGINE, 100 UNIT/ML CARTRIDGE SQ SCH (08:34)
[2018-10-25] MEDS ORDERED: LOSA50TA3 PO (10:52)
[2018-10-25] MEDS ORDERED: AMLO5TAB9 PO (10:52)
[2018-10-25] MEDS ORDERED: ATOR40TA PO (10:52)
[2018-10-25] MEDS ORDERED: *INS REG3 SQ (10:52)
[2018-10-25] MEDS ORDERED: ASPI-1169 PO (10:52)
[2018-10-25] MEDS ORDERED: INSU100V28 SQ (10:52)
[2018-10-25 12:22] VITALS: BP 175/93
[2018-10-25] MEDS: hydrALAZINE HCL IV 20 MG VIAL IV PRN (12:22)
--- NOTE | 2018-10-25 13:15 | NUR ---
MS RN NOTES PLACED CALL TO [facility] ([phone][facility] AND GAVE REPORT TO ALEJANDRINA ALMAZAN
--- NOTE | 2018-10-25 13:37 | NUR ---
MS RN NOTES PATIENT TO DISCHARGE TODAY. TO [facility] TO [facility] ([phone]). DISCHARGE INSTRUCTIONS AND EDUCATION GIVEN TO PATIENT AND VERBALIZED UNDERSTANDING. IV REMOVED WITH MINIMAL BLEEDING NOTED. PRESSURE DRESSING PLACED ON SITE. ALL BELONGINGS COMPLETE ON DISCHARGE, NO REPORT OF MISSING INVENTORY. SPOKE WITH RINA (SISTER/DPOA) AND MADE AWARE OF DISCHARGE AND VERBALIZED UNDERSTANDING. PATIENT LEFT UNIT AT 1335 VIA GURNEY IN STABLE CONDITION. NO NEW SKIN BREAKDOWN NOTED. PATIENT CALM AND RELAXED. BREATHING EVEN AND UNLABORED. DENIES ANY PAIN OR DISCOMFORT. MD AWARE OF DISCHARGE
== END 2018-10-25 13:40 | DRG 305 ==
LOC: ER 12:03 → TELE 16:29 → MED 10-23 16:25
PROVIDERS: ADMIT Nurse Practitioner Acute Care; ATTEND Nurse Practitioner Acute Care
DX: I16.1 Hypertensive emergency (principal); K86.1 Other chronic pancreatitis; I10 Essential (primary) hypertension; G51.0 Bell's palsy; E11.65 Type 2 diabetes mellitus with hyperglycemia; H60.93 Unspecified otitis externa, bilateral; I65.02 Occlusion and stenosis of left vertebral artery; E11.42 Type 2 diabetes mellitus with diabetic polyneuropathy; R13.12 Dysphagia, oropharyngeal phase; Z79.899 Other long term (current) drug therapy; Z79.4 Long term (current) use of insulin
CPT/HCPCS: 36415; 70496-TC; 70498-TC; 80048-TC; 80053-TC; 80061-TC; 80076-TC; 81000-TC; 82962-TC; 83735-TC; 84100-TC; 84443-TC; 84484-TC; 85025-TC; 85730-TC; 87081-TC; G0378; J0360; J1815; J2405; J3475; J7030; J7050; Q9967

== ENCOUNTER 2018-10-25 14:41 | Emergency (ER) | payer MEDICARE, OTHER ==
[~2018-10-25] VITALS: Ht 177.8 cm; Wt 92.1 kg
[~2018-10-25 14:41] MED LIST changes: +*INS REG3 SQ; +ACET325T53 PO; +AMLO5TAB9 PO; +ASPI-1169 PO; +ATOR40TA PO; +BISA10SU61 RC; +BLOO-668 IN; +CHOL100044 PO; +CIPR7.5D EACH EAR; +DOCU-141 PO; +GABA-532 PO; +HYDR-4384 PO; +INSU100V7 SQ; +LOSA50TA3 PO; +MAGN400O6 PO; +METF-440 PO; +MULT-447 PO; +NA P133E RC; +NITR0.4T48 SL; +SENN-168 PO; +ZOLP5TAB2 PO
--- NOTE | 2018-10-25 14:45 | NUR ---
CHINYERE PLATA FROM [facility] FOR HIGH BLOOD PRESSURE. PT AAOX3, VSS. DENIES CP, SOB, DIZZINESS, N/V, CONNER, WEAKNESS @ THIS TIME. PT SEEN & EVAL'D BY DR. BENITES & WILL CONT TO MONITOR.
[2018-10-25] MEDS ORDERED: CLONIDINE HCL 0.1 MG TABLET PO ONE (15:00)
[2018-10-25] MEDS ORDERED: CLONIDINE HCL 0.1 MG TABLET ONE (15:05)
--- NOTE | 2018-10-25 15:30 | NUR ---
PT BP 136/79. DR. BENITES CANCELLED CLONODINE 0.1MG PO. Patient discharged to [facility] VIA BLS in stable condition. Written and verbal after care instructions given. Patient verbalizes understanding of instruction.
[2018-10-25 15:34] VITALS: BP 136/79
== END 2018-10-25 15:34 ==
LOC: EDUNIT# 14:41 → ER 14:45
DX: I10 Essential (primary) hypertension (principal); E11.9 Type 2 diabetes mellitus without complications; Z60.2 Problems related to living alone; Z79.4 Long term (current) use of insulin; Z79.82 Long term (current) use of aspirin; Z88.8 Allergy status to other drugs, medicaments and biological substances

== ENCOUNTER 2023-04-12 10:39 | Inpatient (IN) | payer MEDICARE, OTHER ==
[2023-04-12] VITALS (14 sets, daily range): BP systolic 91–143; BP diastolic 55–103; TEMP 98.7; O2SAT 100
[~2023-04-12] VITALS: Ht 180.3 cm; Wt 66.2 kg
[~2023-04-12 10:39] MED LIST changes: +AMLO-212 PO; -AMLO5TAB9 PO; -CIPR7.5D EACH EAR; -Insulin Glargine,Hum SQ; -SENN-168 PO; +SENN-261 PO
[2023-04-12] MEDS ORDERED: IV NS 0.9% 1,000 ML BAG IV ONE (11:00)
[2023-04-12] MEDS ORDERED: VANCOMYCIN 1 GM in IV D5W 250 ML IV ONE (11:00)
[2023-04-12] MEDS ORDERED: ACETAMINOPHEN 325 MG TABLET PO ONE (11:00)
[2023-04-12] MEDS ORDERED: CEFEPIME 1 GM in IV D5W 50 ML IV ONE (11:00)
[2023-04-12 11:18] LABS: BASOPHILS # (AUTO) 0.1 K/uL (0.0-0.2); BASOPHILS % (AUTO) 0.5 % (0.0-2.0); EOSINOPHILS # (AUTO) 0.1 K/uL (0.0-0.7); EOSINOPHILS % (AUTO) 0.6 % (0.0-6.0); HEMATOCRIT 39 % (39-51); HEMOGLOBIN 12.8 g/dL (13.5-17.5); LYMPHOCYTES # (AUTO) 0.9 K/uL (0.8-4.8); LYMPHOCYTES % (AUTO) 7.4 % (20.0-44.0); MEAN CORPUSCULAR HEMOGLOBIN 30 PG (26.0-33.0); MEAN CORPUSCULAR HGB CONC 33 g/dl (31.0-36.0); MEAN CORPUSCULAR VOLUME 92 fL (80-96); MONOCYTES # (AUTO) 1.2 K/uL (0.1-1.30); MONOCYTES % (AUTO) 9.7 % (2.0-12.0); NEUTROPHILS # (AUTO) 9.7 K/uL (1.8-8.9); NEUTROPHILS % (AUTO) 81.8 % (43.0-81.0); PLATELET COUNT (AUTO) 230 K/uL (150-450); RED BLOOD CELL COUNT(AUTO) 4.26 MIL/uL (4.5-6.0); RED CELL DISTRIBUTION WIDTH 14.3 % (11.5-15.0); WHITE BLOOD COUNT (AUTO) 11.8 K/uL (4.3-11.0)
[2023-04-12 11:28] LABS: APPEARANCE,URINE SLIGHTLY CLOUDY (CLEAR); BILIRUBIN,URINE NEGATIVE (NEGATIVE); BLOOD, URINE NEGATIVE Ery/uL (NEGATIVE); COLOR,URINE YELLOW (YELLOW); KETONES,URINE NEGATIVE (NEGATIVE); LEUKOCYTE ESTERASE ,URINE NEGATIVE (NEGATIVE); NITRITE, URINE NEGATIVE (NEGATIVE); PROTEIN,URINE NEGATIVE (NEGATIVE); UGLUCOSE 3+ mg/dL (NEGATIVE)
[2023-04-12 11:29] LABS: INR 1.08 (0.91-1.10); PARTIAL THROMBOPLASTIN TIME 26.1 SEC (24.3-34.3); PROTHROMBIN TIME 11.3 SECS (9.2-11.1)
[2023-04-12 11:30] LABS: CALCIUM, SERUM 8.8 mg/dL (8.5-10.1); CARBON DIOXIDE 30 mmol/L (21-32); CHLORIDE 112 mmol/L (98-107); CREATININE 0.9 mg/dL (0.6-1.3); GLUCOSE 147 mg/dL (74-106); POTASSIUM 5.2 mmol/L (3.5-5.1); SODIUM SERUM 147 mmol/L (136-145); UREA NITROGEN, BLOOD 53 mg/dL (7-18)
[2023-04-12] MEDS ORDERED: CLON0.1T GT (11:32)
[2023-04-12] MEDS ORDERED: CANA100T GT (11:32)
[2023-04-12] MEDS ORDERED: CARV3.12 GT (11:32)
[2023-04-12] MEDS ORDERED: FAMO20TA8 GT (11:32)
[2023-04-12] MEDS ORDERED: SPIR25TA6 GT (11:32)
[2023-04-12] MEDS ORDERED: SACU1TAB7 GT (11:32)
[2023-04-12] MEDS ORDERED: ACET-2605 GT (11:32)
[2023-04-12] MEDS ORDERED: INSU100V3 SQ (11:32)
[2023-04-12] MEDS ORDERED: CLOP75TA15 GT (11:32)
[2023-04-12] MEDS ORDERED: ACET-868 GT (11:32)
[2023-04-12] MEDS ORDERED: MULT-213 GT (11:32)
[2023-04-12] MEDS ORDERED: BLOO-668 IN (11:32)
[2023-04-12] MEDS ORDERED: INSU100V7 SQ (11:32)
[2023-04-12] MEDS ORDERED: BISA10SU11 RC (11:32)
[2023-04-12] MEDS ORDERED: CHLO473M5 MM (11:32)
[2023-04-12] MEDS ORDERED: IPRA4AER IH ×2 (11:32)
[2023-04-12] MEDS ORDERED: ACETAMINOPHEN 325 MG TABLET ONE (11:32)
[2023-04-12 11:38] LABS: LACTIC ACID 1.7 mmol/L (0.4-2.0)
[2023-04-12 11:44] LABS: ALANINE AMINOTRANSFERASE 57 U/L (12-78); ALBUMIN 2.1 g/dL (3.4-5.0); ALKALINE PHOSPHATASE 137 U/L (46-116); ASPARTATE AMINOTRANSFERASE 41 U/L (15-37); BILIRUBIN,DIRECT 0.2 mg/dL (0.0-0.2); BILIRUBIN,TOTAL 0.7 mg/dL (0.2-1.0); TOTAL PROTEIN, SERUM 7.5 g/dL (6.4-8.2)
[2023-04-12] MEDS ORDERED: ZOLPIDEM TARTRATE 5 MG TABLET PO PRN (12:00)
[2023-04-12] MEDS ORDERED: ACETAMINOPHEN 325 MG TABLET PO PRN (12:00)
[2023-04-12] MEDS ORDERED: PHENYLEPHRINE 100 MG in IV NS 0.9% 240 ML IV PRN (12:00)
[2023-04-12] MEDS ORDERED: ACETAMINOPHEN ES 500 MG TABLET GT PRN (12:00)
[2023-04-12] MEDS ORDERED: Medication Not On Formulary EA (Ipratropium/Albuterol Sulfate (Combivent Respimat 20-100 IH PRN (12:00)
[2023-04-12] MEDS ORDERED: CEFEPIME 1 GM in IV D5W 50 ML IV SCH (12:00)
[2023-04-12] MEDS ORDERED: DEXTROSE 50%-WATER 50 ML DISP.SYRIN IV PRN (12:00)
[2023-04-12] MEDS ORDERED: ONDANSETRON HCL/PF 4 MG/2 ML VIAL IVP PRN (12:00)
[2023-04-12] MEDS ORDERED: BISACODYL SUPP (10 MG) 10 MG/SUPP.RECT SUPP.RECT RC PRN (12:00)
[2023-04-12] MEDS ORDERED: MAG HYDROX/AL HYDROX/SIMETH 30 ML UDC PO PRN (12:00)
[2023-04-12] MEDS ORDERED: MAGNESIUM HYDROXIDE 30 ML UDC PO PRN (12:00)
[2023-04-12] MEDS ORDERED: Z GUARD REMEDY 4 OZ OINT TP PRN (12:00)
[2023-04-12] MEDS ORDERED: ASPIRIN 300 MG/SUPP.RECT RC ONE ×2 (12:30→14:00)
[2023-04-12 13:52] LABS: ABG BASE EXCESS 0.5 mmol/L; ABG OXYGEN SATURATION 99.1 % (92.0-98.5); ABG PCO2 31.2 mmHg (35.0-45.0); ABG PH 7.489 (7.350-7.450); ABG PO2 274.8 mmHg (75.0-100.0); ABG TOTAL HEMOGLOBIN 12.1 G/dL (13.5-18.0); COHb 0.3 % (0.5-1.5); MetHb 0.3 % (0.0-1.5); O2Hb 98.5 % (94.0-97.0); SITE, ABG Left Radial
[2023-04-12] MEDS ORDERED: NOREPINEPHRINE 8MG/250ML RTU 250 ML IV ONE (14:27)
[2023-04-12] MEDS ORDERED: NOREPINEPHRINE 32 MG in IV NS 0.9% 218 ML IV PRN ×2 (14:30→20:00)
[2023-04-12] MEDS ORDERED: NOREPINEPHRINE 8 MG in IV NS 0.9% 250ML IV PRN (14:30)
[2023-04-12] MEDS ORDERED: ALBUTEROL FS 2.5 MG/0.5 ML VIAL.NEB NEB PRN (20:00)
[2023-04-12] MEDS ORDERED: IPRATROPIUM NEB FS 0.5 MG/2.5 ML AMPUL.NEB NEB PRN (20:00)
[2023-04-12] MEDS: NOREPINEPHRINE 8 MG in IV NS 0.9% 242 ML IV PRN (20:30)
[2023-04-12] MEDS: IV NS 0.9% 1,000 ML IV PRN (21:42)
[2023-04-12] MEDS: CEFEPIME 2 GM in IV D5W 100 ML IV SCH (21:45)
[2023-04-12] MEDS: VANCOMYCIN 1.25 GM in IV D5W 250 ML IV SCH (23:30)
[2023-04-12] MEDS: BLOOD SUGAR DIAGNOSTIC 1 EACH STRIP IN SCH ×3 (23:31→23:38)
[2023-04-12] MEDS: CHLORHEXIDINE GLUCONATE 15 ML UDC MM SCH (23:31)
[2023-04-12] MEDS: GLUCERNA 1.2 1,000 ML BOTTLE NG PRN (23:32)
[2023-04-13] VITALS (102 sets, daily range): BP systolic 72–138; BP diastolic 47–96; TEMP 97.9–99.4; O2SAT 97–100
[2023-04-13] MEDS: IPRATROPIUM NEB FS 0.5 MG/2.5 ML AMPUL.NEB NEB SCH ×4 (01:31→19:43)
[2023-04-13] MEDS: ALBUTEROL FS 2.5 MG/0.5 ML VIAL.NEB NEB SCH ×4 (01:31→19:43)
[2023-04-13] MEDS: CEFEPIME 2 GM in IV D5W 100 ML IV SCH ×3 (04:32→20:26)
[2023-04-13 05:05] LABS: BASOPHILS % (AUTO) 0.1 % (0.0-2.0); EOSINOPHILS % (AUTO) 0.1 % (0.0-6.0); HEMATOCRIT 41 % (39-51); HEMOGLOBIN 13.1 g/dL (13.5-17.5); LYMPHOCYTES # (AUTO) 1.4 K/uL (0.8-4.8); LYMPHOCYTES % (AUTO) 10.8 % (20.0-44.0); MEAN CORPUSCULAR HEMOGLOBIN 29 PG (26.0-33.0); MEAN CORPUSCULAR HGB CONC 32 g/dl (31.0-36.0); MEAN CORPUSCULAR VOLUME 92 fL (80-96); MONOCYTES # (AUTO) 1.3 K/uL (0.1-1.30); PLATELET COUNT (AUTO) 251 K/uL (150-450); RED BLOOD CELL COUNT(AUTO) 4.48 MIL/uL (4.5-6.0); RED CELL DISTRIBUTION WIDTH 14.4 % (11.5-15.0); WHITE BLOOD COUNT (AUTO) 12.7 K/uL (4.3-11.0)
[2023-04-13 05:23] LABS: CALCIUM, SERUM 8.4 mg/dL (8.5-10.1); CARBON DIOXIDE 28 mmol/L (21-32); CHLORIDE 113 mmol/L (98-107); CREATININE 0.9 mg/dL (0.6-1.3); GLUCOSE 195 mg/dL (74-106); MAGNESIUM 3.2 mg/dL (1.8-2.4); PHOSPHORUS 3.8 mg/dL (2.5-4.9); POTASSIUM 4.9 mmol/L (3.5-5.1); SODIUM SERUM 149 mmol/L (136-145); UREA NITROGEN, BLOOD 49 mg/dL (7-18)
[2023-04-13] MEDS ORDERED: NOREPINEPHRINE 8 MG in IV NS 0.9% 250ML IV PRN (06:00)
[2023-04-13] MEDS: BLOOD SUGAR DIAGNOSTIC 1 EACH STRIP IN SCH ×3 (06:08→17:29)
[2023-04-13] MEDS: IV NS 0.9% 1,000 ML IV PRN (08:14)
[2023-04-13] MEDS: ACETAMINOPHEN 325 MG TABLET PO PRN ×2 (08:38→15:42)
[2023-04-13] MEDS: FAMOTIDINE (20 MG) 20 MG TABLET GT SCH (08:40)
[2023-04-13] MEDS: SACUBITRIL/VALSARTAN 1 EACH TABLET GT SCH ×2 (08:40→17:20)
[2023-04-13] MEDS: MULTIVIT W/MINERALS 1 TAB TABLET GT SCH (08:41)
[2023-04-13] MEDS: CHLORHEXIDINE GLUCONATE 15 ML UDC MM SCH ×2 (08:41→17:19)
[2023-04-13] MEDS: CARVEDILOL 3.125 MG TABLET GT SCH ×2 (08:42→17:00)
[2023-04-13] MEDS: CLOPIDOGREL BISULFATE 75 MG TABLET GT SCH (08:42)
[2023-04-13] MEDS ORDERED: Medication Not On Formulary EA (Canagliflozin (Invokana) 100 MG) GT SCH (09:00)
[2023-04-13] MEDS: VANCOMYCIN 1.25 GM in IV D5W 250 ML IV SCH ×2 (10:38→23:00)
[2023-04-13] MEDS: INSULIN REGULAR, HUMAN 100 UNIT/ML 3 ML VIAL SQ PRN ×2 (11:22→17:31)
[2023-04-13] MEDS: IV 1/2NS 1000 ML 1,000 ML IV PRN ×2 (14:25→22:34)
[2023-04-13] MEDS: GLUCERNA 1.2 1,000 ML BOTTLE NG PRN (14:33)
[2023-04-13] MEDS: NOREPINEPHRINE 8 MG in IV NS 0.9% 242 ML IV PRN (15:21)
[2023-04-13] MEDS ORDERED: HYDROCODONE/APAP 5/325MG TABLET GT PRN (15:30)
[2023-04-13] MEDS ORDERED: LORAZEPAM INJ 2 MG/ML VIAL IV PRN (15:30)
[2023-04-13 16:10] LABS: BASOPHILS % (AUTO) 0.1 % (0.0-2.0); EOSINOPHILS % (AUTO) 0.1 % (0.0-6.0); HEMATOCRIT 39 % (39-51); HEMOGLOBIN 12.5 g/dL (13.5-17.5); LYMPHOCYTES # (AUTO) 1.1 K/uL (0.8-4.8); LYMPHOCYTES % (AUTO) 8.5 % (20.0-44.0); MEAN CORPUSCULAR HEMOGLOBIN 29 PG (26.0-33.0); MEAN CORPUSCULAR HGB CONC 32 g/dl (31.0-36.0); MEAN CORPUSCULAR VOLUME 92 fL (80-96); MONOCYTES # (AUTO) 1.2 K/uL (0.1-1.30); MONOCYTES % (AUTO) 9.4 % (2.0-12.0); NEUTROPHILS # (AUTO) 10.1 K/uL (1.8-8.9); NEUTROPHILS % (AUTO) 81.9 % (43.0-81.0); PLATELET COUNT (AUTO) 253 K/uL (150-450); RED BLOOD CELL COUNT(AUTO) 4.27 MIL/uL (4.5-6.0); RED CELL DISTRIBUTION WIDTH 14.3 % (11.5-15.0); WHITE BLOOD COUNT (AUTO) 12.4 K/uL (4.3-11.0)
[2023-04-14] VITALS (100 sets, daily range): BP systolic 70–151; BP diastolic 50–96; TEMP 98.4–99.2; O2SAT 90–100
[2023-04-14] MEDS: BLOOD SUGAR DIAGNOSTIC 1 EACH STRIP IN SCH ×4 (00:30→17:01)
[2023-04-14] MEDS ORDERED: CELLULOSE,OXIDIZED 1 EA PACK MC ONE (01:00)
[2023-04-14] MEDS: INSULIN REGULAR, HUMAN 100 UNIT/ML 3 ML VIAL SQ PRN ×2 (01:26→05:44)
[2023-04-14] MEDS: IPRATROPIUM NEB FS 0.5 MG/2.5 ML AMPUL.NEB NEB SCH ×4 (01:51→19:43)
[2023-04-14] MEDS: ALBUTEROL FS 2.5 MG/0.5 ML VIAL.NEB NEB SCH ×4 (01:51→19:43)
[2023-04-14] MEDS: CEFEPIME 2 GM in IV D5W 100 ML IV SCH ×3 (05:10→20:01)
[2023-04-14 05:58] LABS: BASOPHILS % (AUTO) 0.2 % (0.0-2.0); EOSINOPHILS # (AUTO) 0.1 K/uL (0.0-0.7); EOSINOPHILS % (AUTO) 0.5 % (0.0-6.0); HEMATOCRIT 35 % (39-51); HEMOGLOBIN 11.4 g/dL (13.5-17.5); LYMPHOCYTES # (AUTO) 1.4 K/uL (0.8-4.8); LYMPHOCYTES % (AUTO) 12.4 % (20.0-44.0); MEAN CORPUSCULAR HEMOGLOBIN 30 PG (26.0-33.0); MEAN CORPUSCULAR HGB CONC 33 g/dl (31.0-36.0); MEAN CORPUSCULAR VOLUME 92 fL (80-96); MONOCYTES % (AUTO) 8.6 % (2.0-12.0); NEUTROPHILS # (AUTO) 8.6 K/uL (1.8-8.9); NEUTROPHILS % (AUTO) 78.3 % (43.0-81.0); PLATELET COUNT (AUTO) 236 K/uL (150-450); RED BLOOD CELL COUNT(AUTO) 3.77 MIL/uL (4.5-6.0); RED CELL DISTRIBUTION WIDTH 14.1 % (11.5-15.0)
[2023-04-14 06:09] LABS: CALCIUM, SERUM 8.1 mg/dL (8.5-10.1); CARBON DIOXIDE 25 mmol/L (21-32); CHLORIDE 111 mmol/L (98-107); GLUCOSE 246 mg/dL (74-106); POTASSIUM 4.8 mmol/L (3.5-5.1); SODIUM SERUM 144 mmol/L (136-145); UREA NITROGEN, BLOOD 51 mg/dL (7-18)
[2023-04-14 06:10] LABS: MAGNESIUM 3.2 mg/dL (1.8-2.4)
[2023-04-14] MEDS: IV 1/2NS 1000 ML 1,000 ML IV PRN ×2 (06:34→17:03)
[2023-04-14 07:17] LABS: THYROID STIMULATING HORMONE 4.099 uIU/mL (0.358-3.74); URIC ACID 5.6 mg/dL (2.6-7.2)
[2023-04-14] MEDS: MULTIVIT W/MINERALS 1 TAB TABLET GT SCH (08:18)
[2023-04-14] MEDS: CLOPIDOGREL BISULFATE 75 MG TABLET GT SCH (08:18)
[2023-04-14] MEDS: FAMOTIDINE (20 MG) 20 MG TABLET GT SCH (08:18)
[2023-04-14] MEDS: CHLORHEXIDINE GLUCONATE 15 ML UDC MM SCH ×2 (08:18→17:01)
[2023-04-14] MEDS: VANCOMYCIN 1 GM in IV D5W 250 ML IV SCH ×2 (08:19→21:01)
[2023-04-14] MEDS: CARVEDILOL 3.125 MG TABLET GT SCH ×2 (08:19→17:00)
[2023-04-14] MEDS: SACUBITRIL/VALSARTAN 1 EACH TABLET GT SCH ×2 (08:19→17:00)
[2023-04-14 21:50] LABS: ABG OXYGEN SATURATION 98.7 % (92.0-98.5); ABG PCO2 39.3 mmHg (35.0-45.0); ABG PH 7.397 (7.350-7.450); ABG PO2 169.5 mmHg (75.0-100.0); ABG TOTAL HEMOGLOBIN 14.2 G/dL (13.5-18.0); AaDO2 70.5 mmHg; COHb 0.8 % (0.5-1.5); MetHb 0.1 % (0.0-1.5); O2Hb 97.8 % (94.0-97.0); PEEP,BG 5 cm H2O; SITE, ABG Left Radial
[2023-04-15] VITALS (45 sets, daily range): BP systolic 82–151; BP diastolic 55–97; TEMP 97.5–98.8; O2SAT 99–100
[2023-04-15] MEDS: BLOOD SUGAR DIAGNOSTIC 1 EACH STRIP IN SCH ×4 (00:05→18:32)
[2023-04-15] MEDS: INSULIN REGULAR, HUMAN 100 UNIT/ML 3 ML VIAL SQ PRN ×3 (00:12→18:43)
[2023-04-15] MEDS: ALBUTEROL FS 2.5 MG/0.5 ML VIAL.NEB NEB SCH ×4 (02:04→20:11)
[2023-04-15] MEDS: IPRATROPIUM NEB FS 0.5 MG/2.5 ML AMPUL.NEB NEB SCH ×4 (02:04→20:11)
[2023-04-15] MEDS: IV 1/2NS 1000 ML 1,000 ML IV PRN ×2 (04:27→13:00)
[2023-04-15] MEDS: CEFEPIME 2 GM in IV D5W 100 ML IV SCH ×3 (04:39→20:02)
[2023-04-15 04:53] LABS: BASOPHILS % (AUTO) 0.2 % (0.0-2.0); EOSINOPHILS # (AUTO) 0.2 K/uL (0.0-0.7); EOSINOPHILS % (AUTO) 2.6 % (0.0-6.0); HEMATOCRIT 31 % (39-51); HEMOGLOBIN 10.2 g/dL (13.5-17.5); LYMPHOCYTES # (AUTO) 1.2 K/uL (0.8-4.8); LYMPHOCYTES % (AUTO) 13.6 % (20.0-44.0); MEAN CORPUSCULAR HEMOGLOBIN 30 PG (26.0-33.0); MEAN CORPUSCULAR HGB CONC 33 g/dl (31.0-36.0); MEAN CORPUSCULAR VOLUME 90 fL (80-96); MONOCYTES # (AUTO) 0.7 K/uL (0.1-1.30); MONOCYTES % (AUTO) 7.8 % (2.0-12.0); NEUTROPHILS # (AUTO) 6.7 K/uL (1.8-8.9); NEUTROPHILS % (AUTO) 75.8 % (43.0-81.0); PLATELET COUNT (AUTO) 215 K/uL (150-450); RED BLOOD CELL COUNT(AUTO) 3.45 MIL/uL (4.5-6.0); RED CELL DISTRIBUTION WIDTH 13.8 % (11.5-15.0); WHITE BLOOD COUNT (AUTO) 8.8 K/uL (4.3-11.0)
[2023-04-15 05:14] LABS: CREATININE 0.7 mg/dL (0.6-1.3); POTASSIUM 4.3 mmol/L (3.5-5.1)
[2023-04-15] MEDS: NOREPINEPHRINE 8 MG in IV NS 0.9% 242 ML IV PRN (05:17)
[2023-04-15] MEDS: SACUBITRIL/VALSARTAN 1 EACH TABLET GT SCH ×2 (09:00→18:42)
[2023-04-15] MEDS: CLOPIDOGREL BISULFATE 75 MG TABLET GT SCH (09:00)
[2023-04-15] MEDS: CARVEDILOL 3.125 MG TABLET GT SCH ×2 (09:00→17:00)
[2023-04-15] MEDS: FAMOTIDINE (20 MG) 20 MG TABLET GT SCH (09:00)
[2023-04-15] MEDS: MULTIVIT W/MINERALS 1 TAB TABLET GT SCH (09:00)
[2023-04-15] MEDS: VANCOMYCIN 1 GM in IV D5W 250 ML IV SCH ×2 (10:57→20:42)
[2023-04-15] MEDS: CHLORHEXIDINE GLUCONATE 15 ML UDC MM SCH ×2 (10:57→18:31)
[2023-04-15] MEDS: PROSOURCE / PROSTAT (PYXIS) 30 ML UDC GT SCH (18:32)
[2023-04-15] MEDS: GLUCERNA 1.2 1,000 ML BOTTLE PEG PRN (18:33)
[2023-04-16] VITALS (16 sets, daily range): BP systolic 93–128; BP diastolic 57–87; TEMP 97.5–99; O2SAT 100
[2023-04-16] MEDS: BLOOD SUGAR DIAGNOSTIC 1 EACH STRIP IN SCH ×5 (00:36→23:59)
[2023-04-16] MEDS: INSULIN REGULAR, HUMAN 100 UNIT/ML 3 ML VIAL SQ PRN ×4 (00:41→18:33)
[2023-04-16] MEDS: IPRATROPIUM NEB FS 0.5 MG/2.5 ML AMPUL.NEB NEB SCH ×4 (01:53→20:30)
[2023-04-16] MEDS: ALBUTEROL FS 2.5 MG/0.5 ML VIAL.NEB NEB SCH ×4 (01:53→20:29)
[2023-04-16] MEDS: IV 1/2NS 1000 ML 1,000 ML IV PRN ×2 (01:54→10:53)
[2023-04-16 03:45] LABS: BASOPHILS % (AUTO) 0.1 % (0.0-2.0); EOSINOPHILS # (AUTO) 0.3 K/uL (0.0-0.7); EOSINOPHILS % (AUTO) 3.3 % (0.0-6.0); HEMATOCRIT 30 % (39-51); HEMOGLOBIN 9.9 g/dL (13.5-17.5); LYMPHOCYTES # (AUTO) 0.9 K/uL (0.8-4.8); LYMPHOCYTES % (AUTO) 10.7 % (20.0-44.0); MEAN CORPUSCULAR HEMOGLOBIN 30 PG (26.0-33.0); MEAN CORPUSCULAR HGB CONC 34 g/dl (31.0-36.0); MEAN CORPUSCULAR VOLUME 89 fL (80-96); MONOCYTES # (AUTO) 0.6 K/uL (0.1-1.30); MONOCYTES % (AUTO) 7.2 % (2.0-12.0); NEUTROPHILS # (AUTO) 6.5 K/uL (1.8-8.9); NEUTROPHILS % (AUTO) 78.7 % (43.0-81.0); PLATELET COUNT (AUTO) 191 K/uL (150-450); RED CELL DISTRIBUTION WIDTH 13.3 % (11.5-15.0); WHITE BLOOD COUNT (AUTO) 8.2 K/uL (4.3-11.0)
[2023-04-16 03:56] LABS: CREATININE 0.7 mg/dL (0.6-1.3)
[2023-04-16] MEDS: CEFEPIME 2 GM in IV D5W 100 ML IV SCH ×3 (04:25→20:51)
[2023-04-16] MEDS: CARVEDILOL 3.125 MG TABLET GT SCH ×2 (08:39→18:22)
[2023-04-16] MEDS: MULTIVIT W/MINERALS 1 TAB TABLET GT SCH (08:50)
[2023-04-16] MEDS: CHLORHEXIDINE GLUCONATE 15 ML UDC MM SCH ×2 (08:51→18:23)
[2023-04-16] MEDS: CLOPIDOGREL BISULFATE 75 MG TABLET GT SCH (08:51)
[2023-04-16] MEDS: FAMOTIDINE (20 MG) 20 MG TABLET GT SCH (08:51)
[2023-04-16] MEDS: SACUBITRIL/VALSARTAN 1 EACH TABLET GT SCH ×2 (08:52→18:22)
[2023-04-16] MEDS: PROSOURCE / PROSTAT (PYXIS) 30 ML UDC GT SCH ×2 (08:53→18:24)
[2023-04-16] MEDS: VANCOMYCIN 1 GM in IV D5W 250 ML IV SCH ×2 (10:48→21:27)
[2023-04-17] VITALS (7 sets, daily range): BP systolic 101–120; BP diastolic 57–73; TEMP 97–98.4; O2SAT 100
[2023-04-17] MEDS: INSULIN REGULAR, HUMAN 100 UNIT/ML 3 ML VIAL SQ PRN ×5 (00:02→23:12)
[2023-04-17] MEDS: IPRATROPIUM NEB FS 0.5 MG/2.5 ML AMPUL.NEB NEB SCH ×4 (02:29→19:56)
[2023-04-17] MEDS: ALBUTEROL FS 2.5 MG/0.5 ML VIAL.NEB NEB SCH ×4 (02:29→19:56)
[2023-04-17] MEDS: CEFEPIME 2 GM in IV D5W 100 ML IV SCH ×3 (04:42→20:15)
[2023-04-17] MEDS: BLOOD SUGAR DIAGNOSTIC 1 EACH STRIP IN SCH ×4 (05:34→23:19)
[2023-04-17 07:07] LABS: BASOPHILS % (AUTO) 0.2 % (0.0-2.0); EOSINOPHILS # (AUTO) 0.3 K/uL (0.0-0.7); EOSINOPHILS % (AUTO) 3.5 % (0.0-6.0); HEMATOCRIT 29 % (39-51); HEMOGLOBIN 9.8 g/dL (13.5-17.5); LYMPHOCYTES # (AUTO) 0.8 K/uL (0.8-4.8); LYMPHOCYTES % (AUTO) 10.7 % (20.0-44.0); MEAN CORPUSCULAR HEMOGLOBIN 30 PG (26.0-33.0); MEAN CORPUSCULAR HGB CONC 34 g/dl (31.0-36.0); MEAN CORPUSCULAR VOLUME 88 fL (80-96); MONOCYTES # (AUTO) 0.5 K/uL (0.1-1.30); MONOCYTES % (AUTO) 6.6 % (2.0-12.0); NEUTROPHILS # (AUTO) 6.2 K/uL (1.8-8.9); PLATELET COUNT (AUTO) 207 K/uL (150-450); RED BLOOD CELL COUNT(AUTO) 3.23 MIL/uL (4.5-6.0); RED CELL DISTRIBUTION WIDTH 13.7 % (11.5-15.0); WHITE BLOOD COUNT (AUTO) 7.8 K/uL (4.3-11.0)
[2023-04-17 07:13] LABS: CARBON DIOXIDE 25 mmol/L (21-32); CHLORIDE 103 mmol/L (98-107); CREATININE 0.6 mg/dL (0.6-1.3); GLUCOSE 294 mg/dL (74-106); POTASSIUM 4.2 mmol/L (3.5-5.1); SODIUM SERUM 135 mmol/L (136-145); UREA NITROGEN, BLOOD 25 mg/dL (7-18)
[2023-04-17] MEDS: CLOPIDOGREL BISULFATE 75 MG TABLET GT SCH (08:51)
[2023-04-17] MEDS: CHLORHEXIDINE GLUCONATE 15 ML UDC MM SCH ×2 (08:51→16:14)
[2023-04-17] MEDS: FAMOTIDINE (20 MG) 20 MG TABLET GT SCH (08:52)
[2023-04-17] MEDS: CARVEDILOL 3.125 MG TABLET GT SCH ×2 (08:52→16:15)
[2023-04-17] MEDS: MULTIVIT W/MINERALS 1 TAB TABLET GT SCH (08:52)
[2023-04-17] MEDS: SACUBITRIL/VALSARTAN 1 EACH TABLET GT SCH ×2 (08:53→16:07)
[2023-04-17] MEDS: PROSOURCE / PROSTAT (PYXIS) 30 ML UDC GT SCH ×2 (08:54→16:14)
[2023-04-17] MEDS: VANCOMYCIN 1 GM in IV D5W 250 ML IV SCH ×2 (08:55→21:05)
[2023-04-17] MEDS: GLUCERNA 1.2 1,000 ML BOTTLE PEG PRN (08:55)
[2023-04-17 13:07] LABS: EOSINOPHILS % (MANUAL) 1 % (0-4); LYMPHOCYTES % (MANUAL) 13 % (16-48); MONOCYTES % (MANUAL) 8 % (0-11.0); NEUTROPHILS % (MANUAL) 78 (42-76); PLATELET ESTIMATE ADEQUATE
[2023-04-17 13:08] LABS: ANISOCYTOSIS 1+
[2023-04-18] VITALS: BP 116/62; TEMP 98.2; O2SAT 100
[2023-04-18] MEDS: ALBUTEROL FS 2.5 MG/0.5 ML VIAL.NEB NEB SCH ×4 (01:19→19:48)
[2023-04-18] MEDS: IPRATROPIUM NEB FS 0.5 MG/2.5 ML AMPUL.NEB NEB SCH ×4 (01:19→19:47)
[2023-04-18] MEDS: CEFEPIME 2 GM in IV D5W 100 ML IV SCH ×3 (03:58→20:23)
[2023-04-18] MEDS: GLUCERNA 1.2 1,000 ML BOTTLE PEG PRN ×2 (03:59→23:55)
[2023-04-18 04:24] VITALS: BP 111/78; TEMP 98.3; O2SAT 99
[2023-04-18] MEDS: INSULIN REGULAR, HUMAN 100 UNIT/ML 3 ML VIAL SQ PRN ×4 (05:12→23:34)
[2023-04-18] MEDS: BLOOD SUGAR DIAGNOSTIC 1 EACH STRIP IN SCH ×4 (05:13→23:34)
[2023-04-18 07:27] LABS: BASOPHILS % (AUTO) 0.1 % (0.0-2.0); EOSINOPHILS # (AUTO) 0.3 K/uL (0.0-0.7); EOSINOPHILS % (AUTO) 3.2 % (0.0-6.0); HEMATOCRIT 30 % (39-51); HEMOGLOBIN 10.1 g/dL (13.5-17.5); LYMPHOCYTES # (AUTO) 1.3 K/uL (0.8-4.8); LYMPHOCYTES % (AUTO) 15.2 % (20.0-44.0); MEAN CORPUSCULAR HEMOGLOBIN 30 PG (26.0-33.0); MEAN CORPUSCULAR HGB CONC 33 g/dl (31.0-36.0); MEAN CORPUSCULAR VOLUME 89 fL (80-96); MONOCYTES # (AUTO) 0.7 K/uL (0.1-1.30); MONOCYTES % (AUTO) 8.1 % (2.0-12.0); NEUTROPHILS # (AUTO) 6.1 K/uL (1.8-8.9); NEUTROPHILS % (AUTO) 73.4 % (43.0-81.0); PLATELET COUNT (AUTO) 233 K/uL (150-450); RED BLOOD CELL COUNT(AUTO) 3.38 MIL/uL (4.5-6.0); RED CELL DISTRIBUTION WIDTH 13.6 % (11.5-15.0); WHITE BLOOD COUNT (AUTO) 8.3 K/uL (4.3-11.0)
[2023-04-18 07:50] LABS: CALCIUM, SERUM 8.4 mg/dL (8.5-10.1); CARBON DIOXIDE 28 mmol/L (21-32); CHLORIDE 101 mmol/L (98-107); CREATININE 0.6 mg/dL (0.6-1.3); GLUCOSE 312 mg/dL (74-106); POTASSIUM 4.3 mmol/L (3.5-5.1); SODIUM SERUM 134 mmol/L (136-145); UREA NITROGEN, BLOOD 27 mg/dL (7-18)
[2023-04-18 08:00] VITALS: BP 120/74; TEMP 97.5; O2SAT 99
[2023-04-18] MEDS: CHLORHEXIDINE GLUCONATE 15 ML UDC MM SCH ×2 (08:51→16:52)
[2023-04-18] MEDS: FAMOTIDINE (20 MG) 20 MG TABLET GT SCH (08:52)
[2023-04-18] MEDS: CLOPIDOGREL BISULFATE 75 MG TABLET GT SCH (08:52)
[2023-04-18] MEDS: MULTIVIT W/MINERALS 1 TAB TABLET GT SCH (08:52)
[2023-04-18] MEDS: SACUBITRIL/VALSARTAN 1 EACH TABLET GT SCH ×2 (08:53→16:52)
[2023-04-18] MEDS: CARVEDILOL 3.125 MG TABLET GT SCH ×2 (08:53→16:52)
[2023-04-18] MEDS: PROSOURCE / PROSTAT (PYXIS) 30 ML UDC GT SCH ×2 (08:57→16:52)
[2023-04-18] MEDS: VANCOMYCIN 1 GM in IV D5W 250 ML IV SCH ×2 (08:58→21:09)
[2023-04-18 12:00] VITALS: BP 118/70; TEMP 98.6; O2SAT 100
[2023-04-18 16:00] VITALS: BP 112/71; TEMP 98.6; O2SAT 100
[2023-04-18 20:00] VITALS: BP 121/69; TEMP 97.7; O2SAT 100
[2023-04-19] VITALS: BP 120/68; TEMP 97.9; O2SAT 100
[2023-04-19] MEDS: IPRATROPIUM NEB FS 0.5 MG/2.5 ML AMPUL.NEB NEB SCH ×4 (01:47→19:50)
[2023-04-19] MEDS: ALBUTEROL FS 2.5 MG/0.5 ML VIAL.NEB NEB SCH ×4 (01:47→19:50)
[2023-04-19 04:00] VITALS: BP 133/79; TEMP 98; O2SAT 100
[2023-04-19] MEDS: CEFEPIME 2 GM in IV D5W 100 ML IV SCH ×3 (04:46→20:28)
[2023-04-19] MEDS: INSULIN REGULAR, HUMAN 100 UNIT/ML 3 ML VIAL SQ PRN ×3 (05:00→17:58)
[2023-04-19] MEDS: BLOOD SUGAR DIAGNOSTIC 1 EACH STRIP IN SCH ×3 (05:01→17:57)
[2023-04-19 07:27] LABS: BASOPHILS % (AUTO) 0.4 % (0.0-2.0); EOSINOPHILS # (AUTO) 0.3 K/uL (0.0-0.7); EOSINOPHILS % (AUTO) 3.8 % (0.0-6.0); HEMATOCRIT 32 % (39-51); HEMOGLOBIN 10.4 g/dL (13.5-17.5); LYMPHOCYTES # (AUTO) 0.9 K/uL (0.8-4.8); LYMPHOCYTES % (AUTO) 10.7 % (20.0-44.0); MEAN CORPUSCULAR HEMOGLOBIN 30 PG (26.0-33.0); MEAN CORPUSCULAR HGB CONC 33 g/dl (31.0-36.0); MEAN CORPUSCULAR VOLUME 90 fL (80-96); MONOCYTES # (AUTO) 0.6 K/uL (0.1-1.30); NEUTROPHILS # (AUTO) 6.4 K/uL (1.8-8.9); NEUTROPHILS % (AUTO) 78.1 % (43.0-81.0); PLATELET COUNT (AUTO) 232 K/uL (150-450); RED BLOOD CELL COUNT(AUTO) 3.51 MIL/uL (4.5-6.0); WHITE BLOOD COUNT (AUTO) 8.1 K/uL (4.3-11.0)
[2023-04-19 08:00] VITALS: BP 144/81; TEMP 98.9; O2SAT 100
[2023-04-19 08:54] LABS: CALCIUM, SERUM 8.8 mg/dL (8.5-10.1); CARBON DIOXIDE 29 mmol/L (21-32); CHLORIDE 101 mmol/L (98-107); CREATININE 0.6 mg/dL (0.6-1.3); GLUCOSE 331 mg/dL (74-106); SODIUM SERUM 135 mmol/L (136-145); UREA NITROGEN, BLOOD 24 mg/dL (7-18)
[2023-04-19] MEDS: FAMOTIDINE (20 MG) 20 MG TABLET GT SCH (09:02)
[2023-04-19] MEDS: CHLORHEXIDINE GLUCONATE 15 ML UDC MM SCH ×2 (09:02→16:33)
[2023-04-19] MEDS: MULTIVIT W/MINERALS 1 TAB TABLET GT SCH (09:02)
[2023-04-19] MEDS: SACUBITRIL/VALSARTAN 1 EACH TABLET GT SCH ×2 (09:02→16:32)
[2023-04-19] MEDS: CARVEDILOL 3.125 MG TABLET GT SCH ×2 (09:03→16:32)
[2023-04-19] MEDS: PROSOURCE / PROSTAT (PYXIS) 30 ML UDC GT SCH ×2 (09:03→16:31)
[2023-04-19] MEDS: CLOPIDOGREL BISULFATE 75 MG TABLET GT SCH (09:04)
[2023-04-19] MEDS: VANCOMYCIN 1 GM in IV D5W 250 ML IV SCH ×2 (09:06→21:15)
[2023-04-19 12:00] VITALS: BP 144/81; TEMP 100; O2SAT 100
[2023-04-19 16:00] VITALS: BP 121/73; TEMP 98.9; O2SAT 100
[2023-04-19] MEDS: GLUCERNA 1.2 1,000 ML BOTTLE PEG PRN (16:40)
[2023-04-19 20:00] VITALS: BP 111/75; TEMP 97.7; O2SAT 98
[2023-04-20] VITALS: BP 150/93; TEMP 98.4; O2SAT 100
[2023-04-20] MEDS: INSULIN REGULAR, HUMAN 100 UNIT/ML 3 ML VIAL SQ PRN ×4 (00:14→17:13)
[2023-04-20] MEDS: BLOOD SUGAR DIAGNOSTIC 1 EACH STRIP IN SCH ×4 (00:15→17:12)
[2023-04-20] MEDS: ALBUTEROL FS 2.5 MG/0.5 ML VIAL.NEB NEB SCH ×4 (01:40→20:29)
[2023-04-20] MEDS: IPRATROPIUM NEB FS 0.5 MG/2.5 ML AMPUL.NEB NEB SCH ×4 (01:41→20:29)
[2023-04-20 04:00] VITALS: BP 136/86; TEMP 98.6; O2SAT 100
[2023-04-20] MEDS: CEFEPIME 2 GM in IV D5W 100 ML IV SCH ×3 (04:10→21:04)
[2023-04-20] MEDS: GLUCERNA 1.2 1,000 ML BOTTLE PEG PRN (04:23)
[2023-04-20 06:46] LABS: BASOPHILS % (AUTO) 0.4 % (0.0-2.0); EOSINOPHILS # (AUTO) 0.1 K/uL (0.0-0.7); EOSINOPHILS % (AUTO) 0.5 % (0.0-6.0); HEMATOCRIT 33 % (39-51); HEMOGLOBIN 10.8 g/dL (13.5-17.5); LYMPHOCYTES # (AUTO) 0.7 K/uL (0.8-4.8); LYMPHOCYTES % (AUTO) 6.3 % (20.0-44.0); MEAN CORPUSCULAR HEMOGLOBIN 29 PG (26.0-33.0); MEAN CORPUSCULAR HGB CONC 33 g/dl (31.0-36.0); MEAN CORPUSCULAR VOLUME 88 fL (80-96); MONOCYTES # (AUTO) 0.7 K/uL (0.1-1.30); MONOCYTES % (AUTO) 6.5 % (2.0-12.0); NEUTROPHILS # (AUTO) 9.8 K/uL (1.8-8.9); NEUTROPHILS % (AUTO) 86.3 % (43.0-81.0); PLATELET COUNT (AUTO) 271 K/uL (150-450); RED BLOOD CELL COUNT(AUTO) 3.69 MIL/uL (4.5-6.0); RED CELL DISTRIBUTION WIDTH 13.8 % (11.5-15.0); WHITE BLOOD COUNT (AUTO) 11.4 K/uL (4.3-11.0)
[2023-04-20 07:02] LABS: CALCIUM, SERUM 8.7 mg/dL (8.5-10.1); CREATININE 0.7 mg/dL (0.6-1.3); MAGNESIUM 1.9 mg/dL (1.8-2.4); PHOSPHORUS 3.3 mg/dL (2.5-4.9); POTASSIUM 4.8 mmol/L (3.5-5.1)
[2023-04-20 08:00] VITALS: BP 104/69; TEMP 98.7; O2SAT 100
[2023-04-20] MEDS: PROSOURCE / PROSTAT (PYXIS) 30 ML UDC GT SCH ×2 (08:51→16:27)
[2023-04-20] MEDS: VANCOMYCIN 1 GM in IV D5W 250 ML IV SCH ×2 (08:57→21:46)
[2023-04-20] MEDS: CHLORHEXIDINE GLUCONATE 15 ML UDC MM SCH ×2 (08:57→16:31)
[2023-04-20] MEDS: SACUBITRIL/VALSARTAN 1 EACH TABLET GT SCH ×2 (08:58→16:31)
[2023-04-20] MEDS: CARVEDILOL 3.125 MG TABLET GT SCH ×2 (08:59→16:31)
[2023-04-20] MEDS: CLOPIDOGREL BISULFATE 75 MG TABLET GT SCH (08:59)
[2023-04-20] MEDS: FAMOTIDINE (20 MG) 20 MG TABLET GT SCH (08:59)
[2023-04-20] MEDS: MULTIVIT W/MINERALS 1 TAB TABLET GT SCH (09:00)
[2023-04-20] MEDS: INSULIN GLARGINE, 100 UNIT/ML CARTRIDGE SQ SCH ×2 (09:11→21:36)
[2023-04-20 12:00] VITALS: BP 102/61; TEMP 98.7; O2SAT 100
[2023-04-20 16:00] VITALS: BP 112/72; TEMP 98.7; O2SAT 100
[2023-04-20 20:00] VITALS: BP 102/60; TEMP 98.8; O2SAT 100
[2023-04-20] MEDS ORDERED: METRONIDAZOLE 500 MG TABLET PO SCH (22:30)
[2023-04-20] MEDS ORDERED: FLUCONAZOLE (100 MG) 100 MG TABLET PO SCH (22:30)
[2023-04-20] MEDS ORDERED: PHARMACY TO CHANGE PO MEDS TO GT/NG XX PRN (23:30)
[2023-04-21] VITALS: BP 117/71; TEMP 98.6; O2SAT 100
[2023-04-21] MEDS: METRONIDAZOLE 500 MG TABLET GT SCH ×4 (00:23→21:11)
[2023-04-21] MEDS: FLUCONAZOLE (100 MG) 100 MG TABLET GT SCH ×2 (00:23→21:12)
[2023-04-21] MEDS: BLOOD SUGAR DIAGNOSTIC 1 EACH STRIP IN SCH ×4 (00:23→17:51)
[2023-04-21] MEDS: GLUCERNA 1.2 1,000 ML BOTTLE PEG PRN ×2 (00:24→18:25)
[2023-04-21] MEDS ORDERED: ACETAMINOPHEN 650 MG/20.3 ML UDC GT PRN (00:30)
[2023-04-21] MEDS ORDERED: MAGNESIUM HYDROXIDE 30 ML UDC GT PRN (00:30)
[2023-04-21] MEDS ORDERED: MAG HYDROX/AL HYDROX/SIMETH 30 ML UDC GT PRN (00:30)
[2023-04-21] MEDS ORDERED: ZOLPIDEM TARTRATE 5 MG TABLET GT PRN (00:30)
[2023-04-21] MEDS: INSULIN REGULAR, HUMAN 100 UNIT/ML 3 ML VIAL SQ PRN ×4 (01:17→17:52)
[2023-04-21] MEDS: ALBUTEROL FS 2.5 MG/0.5 ML VIAL.NEB NEB SCH ×4 (02:23→20:08)
[2023-04-21] MEDS: IPRATROPIUM NEB FS 0.5 MG/2.5 ML AMPUL.NEB NEB SCH ×4 (02:24→20:07)
[2023-04-21 04:00] VITALS: BP 113/69; TEMP 98.2; O2SAT 100
[2023-04-21] MEDS ORDERED: METRONIDAZOLE 500 MG TABLET GT SCH (05:00)
[2023-04-21 07:30] LABS: BASOPHILS % (AUTO) 0.2 % (0.0-2.0); EOSINOPHILS # (AUTO) 0.3 K/uL (0.0-0.7); HEMATOCRIT 29 % (39-51); HEMOGLOBIN 9.8 g/dL (13.5-17.5); LYMPHOCYTES # (AUTO) 1.2 K/uL (0.8-4.8); LYMPHOCYTES % (AUTO) 13.1 % (20.0-44.0); MEAN CORPUSCULAR HEMOGLOBIN 30 PG (26.0-33.0); MEAN CORPUSCULAR HGB CONC 34 g/dl (31.0-36.0); MEAN CORPUSCULAR VOLUME 89 fL (80-96); MONOCYTES # (AUTO) 0.9 K/uL (0.1-1.30); MONOCYTES % (AUTO) 9.4 % (2.0-12.0); NEUTROPHILS % (AUTO) 74.3 % (43.0-81.0); PLATELET COUNT (AUTO) 250 K/uL (150-450); RED BLOOD CELL COUNT(AUTO) 3.23 MIL/uL (4.5-6.0); WHITE BLOOD COUNT (AUTO) 9.4 K/uL (4.3-11.0)
[2023-04-21 07:39] LABS: CALCIUM, SERUM 8.5 mg/dL (8.5-10.1); CREATININE 1.1 mg/dL (0.6-1.3); MAGNESIUM 2.2 mg/dL (1.8-2.4); PHOSPHORUS 3.4 mg/dL (2.5-4.9); POTASSIUM 4.6 mmol/L (3.5-5.1)
[2023-04-21 08:00] VITALS: BP 98/66; TEMP 98.9; O2SAT 100
[2023-04-21] MEDS: INSULIN GLARGINE, 100 UNIT/ML CARTRIDGE SQ SCH ×2 (09:04→21:13)
[2023-04-21] MEDS: CHLORHEXIDINE GLUCONATE 15 ML UDC MM SCH ×2 (09:06→17:27)
[2023-04-21] MEDS: MULTIVIT W/MINERALS 1 TAB TABLET GT SCH (09:07)
[2023-04-21] MEDS: SACUBITRIL/VALSARTAN 1 EACH TABLET GT SCH ×2 (09:07→17:25)
[2023-04-21] MEDS: CLOPIDOGREL BISULFATE 75 MG TABLET GT SCH (09:08)
[2023-04-21] MEDS: CARVEDILOL 3.125 MG TABLET GT SCH ×2 (09:08→17:25)
[2023-04-21] MEDS: PROSOURCE / PROSTAT (PYXIS) 30 ML UDC GT SCH ×2 (09:08→17:25)
[2023-04-21] MEDS: FAMOTIDINE (20 MG) 20 MG TABLET GT SCH (09:08)
[2023-04-21 12:00] VITALS: BP 99/61; TEMP 98.7; O2SAT 100
[2023-04-21 16:00] VITALS: BP 99/55; TEMP 98.7; O2SAT 100
[2023-04-21 20:00] VITALS: BP 106/69; TEMP 99.1; O2SAT 100
[2023-04-21] MEDS ORDERED: FLUCONAZOLE (100 MG) 100 MG TABLET GT SCH (22:00)
[2023-04-22] VITALS: BP 105/58; TEMP 97.7; O2SAT 100
[2023-04-22] MEDS: BLOOD SUGAR DIAGNOSTIC 1 EACH STRIP IN SCH ×5 (00:07→23:38)
[2023-04-22] MEDS: INSULIN REGULAR, HUMAN 100 UNIT/ML 3 ML VIAL SQ PRN ×5 (00:12→23:37)
[2023-04-22] MEDS: IPRATROPIUM NEB FS 0.5 MG/2.5 ML AMPUL.NEB NEB SCH ×4 (02:05→20:37)
[2023-04-22] MEDS: ALBUTEROL FS 2.5 MG/0.5 ML VIAL.NEB NEB SCH ×4 (02:05→20:37)
[2023-04-22 04:00] VITALS: BP 132/85; TEMP 98.1; O2SAT 100
[2023-04-22] MEDS: METRONIDAZOLE 500 MG TABLET GT SCH ×3 (05:24→22:14)
[2023-04-22 07:46] LABS: CALCIUM, SERUM 8.5 mg/dL (8.5-10.1); CARBON DIOXIDE 35 mmol/L (21-32); CHLORIDE 96 mmol/L (98-107); GLUCOSE 185 mg/dL (74-106); POTASSIUM 4.9 mmol/L (3.5-5.1); SODIUM SERUM 135 mmol/L (136-145); UREA NITROGEN, BLOOD 46 mg/dL (7-18)
[2023-04-22 08:00] VITALS: BP 132/85; TEMP 98.9; O2SAT 100
[2023-04-22] MEDS: PROSOURCE / PROSTAT (PYXIS) 30 ML UDC GT SCH ×2 (09:21→17:43)
[2023-04-22] MEDS: CLOPIDOGREL BISULFATE 75 MG TABLET GT SCH (09:21)
[2023-04-22] MEDS: CHLORHEXIDINE GLUCONATE 15 ML UDC MM SCH ×2 (09:21→17:40)
[2023-04-22] MEDS: FAMOTIDINE (20 MG) 20 MG TABLET GT SCH (09:21)
[2023-04-22] MEDS: MULTIVIT W/MINERALS 1 TAB TABLET GT SCH (09:21)
[2023-04-22] MEDS: CARVEDILOL 3.125 MG TABLET GT SCH ×2 (09:22→17:41)
[2023-04-22] MEDS: INSULIN GLARGINE, 100 UNIT/ML CARTRIDGE SQ SCH ×2 (09:25→23:37)
[2023-04-22] MEDS: SACUBITRIL/VALSARTAN 1 EACH TABLET GT SCH ×2 (09:30→17:43)
[2023-04-22] MEDS: GLUCERNA 1.2 1,000 ML BOTTLE PEG PRN (10:48)
[2023-04-22 12:00] VITALS: BP 125/68; TEMP 98.9; O2SAT 100
[2023-04-22 16:00] VITALS: BP 105/66; TEMP 98.9; O2SAT 100
[2023-04-22 20:00] VITALS: BP_SYST 111; BP_SYST 129; BP_DIAS 70; BP_DIAS 83; TEMP 97.5; TEMP 98.4; O2SAT 100
[2023-04-22] MEDS: FLUCONAZOLE (100 MG) 100 MG TABLET GT SCH (22:14)
[2023-04-23 00:55] VITALS: BP 113/70; TEMP 98.2; O2SAT 100
[2023-04-23] MEDS: ALBUTEROL FS 2.5 MG/0.5 ML VIAL.NEB NEB SCH ×4 (01:58→19:56)
[2023-04-23] MEDS: IPRATROPIUM NEB FS 0.5 MG/2.5 ML AMPUL.NEB NEB SCH ×4 (01:58→19:56)
[2023-04-23 04:00] VITALS: BP 124/74; TEMP 98.2; O2SAT 100
[2023-04-23] MEDS: GLUCERNA 1.2 1,000 ML BOTTLE PEG PRN ×2 (04:23→22:30)
[2023-04-23] MEDS: BLOOD SUGAR DIAGNOSTIC 1 EACH STRIP IN SCH ×3 (06:04→18:22)
[2023-04-23] MEDS: METRONIDAZOLE 500 MG TABLET GT SCH ×3 (06:05→20:39)
[2023-04-23] MEDS: INSULIN REGULAR, HUMAN 100 UNIT/ML 3 ML VIAL SQ PRN ×3 (06:25→18:24)
[2023-04-23 08:00] VITALS: BP 136/84; TEMP 98.2; O2SAT 100
[2023-04-23 08:26] LABS: CALCIUM, SERUM 8.7 mg/dL (8.5-10.1); CARBON DIOXIDE 34 mmol/L (21-32); CHLORIDE 97 mmol/L (98-107); CREATININE 1.1 mg/dL (0.6-1.3); GLUCOSE 254 mg/dL (74-106); POTASSIUM 4.9 mmol/L (3.5-5.1); SODIUM SERUM 134 mmol/L (136-145); UREA NITROGEN, BLOOD 43 mg/dL (7-18)
[2023-04-23] MEDS: CLOPIDOGREL BISULFATE 75 MG TABLET GT SCH (08:39)
[2023-04-23] MEDS: MULTIVIT W/MINERALS 1 TAB TABLET GT SCH (08:39)
[2023-04-23] MEDS: FAMOTIDINE (20 MG) 20 MG TABLET GT SCH (08:39)
[2023-04-23] MEDS: CHLORHEXIDINE GLUCONATE 15 ML UDC MM SCH ×2 (08:39→18:21)
[2023-04-23] MEDS: SACUBITRIL/VALSARTAN 1 EACH TABLET GT SCH ×2 (08:40→18:22)
[2023-04-23] MEDS: CARVEDILOL 3.125 MG TABLET GT SCH ×2 (08:40→18:22)
[2023-04-23] MEDS: PROSOURCE / PROSTAT (PYXIS) 30 ML UDC GT SCH ×2 (08:43→18:22)
[2023-04-23] MEDS: INSULIN GLARGINE, 100 UNIT/ML CARTRIDGE SQ SCH ×2 (08:44→21:40)
[2023-04-23 12:00] VITALS: BP 153/72; TEMP 99.3; O2SAT 99
[2023-04-23 16:00] VITALS: BP 122/70; TEMP 97.8; O2SAT 100
[2023-04-23 20:00] VITALS: BP 122/70; TEMP 97.8; O2SAT 100
[2023-04-23] MEDS: FLUCONAZOLE (100 MG) 100 MG TABLET GT SCH (20:41)
[2023-04-24] VITALS: BP 122/70; TEMP 97.8; O2SAT 100
[2023-04-24] MEDS: BLOOD SUGAR DIAGNOSTIC 1 EACH STRIP IN SCH ×3 (00:21→12:11)
[2023-04-24] MEDS: INSULIN REGULAR, HUMAN 100 UNIT/ML 3 ML VIAL SQ PRN ×3 (00:24→09:18)
[2023-04-24] MEDS: IPRATROPIUM NEB FS 0.5 MG/2.5 ML AMPUL.NEB NEB SCH ×3 (01:44→13:53)
[2023-04-24] MEDS: ALBUTEROL FS 2.5 MG/0.5 ML VIAL.NEB NEB SCH ×3 (01:44→13:53)
[2023-04-24 04:32] VITALS: BP 119/65; TEMP 99.1; O2SAT 100
[2023-04-24] MEDS: METRONIDAZOLE 500 MG TABLET GT SCH ×2 (05:18→15:07)
[2023-04-24 08:00] VITALS: BP 130/76; TEMP 98.9; O2SAT 100
[2023-04-24 08:11] LABS: BASOPHILS % (AUTO) 0.2 % (0.0-2.0); EOSINOPHILS # (AUTO) 0.3 K/uL (0.0-0.7); EOSINOPHILS % (AUTO) 3.4 % (0.0-6.0); HEMATOCRIT 30 % (39-51); LYMPHOCYTES # (AUTO) 1.1 K/uL (0.8-4.8); LYMPHOCYTES % (AUTO) 12.7 % (20.0-44.0); MEAN CORPUSCULAR HEMOGLOBIN 29 PG (26.0-33.0); MEAN CORPUSCULAR HGB CONC 33 g/dl (31.0-36.0); MEAN CORPUSCULAR VOLUME 88 fL (80-96); MONOCYTES # (AUTO) 0.7 K/uL (0.1-1.30); MONOCYTES % (AUTO) 8.6 % (2.0-12.0); NEUTROPHILS # (AUTO) 6.5 K/uL (1.8-8.9); NEUTROPHILS % (AUTO) 75.1 % (43.0-81.0); PLATELET COUNT (AUTO) 278 K/uL (150-450); RED BLOOD CELL COUNT(AUTO) 3.41 MIL/uL (4.5-6.0); RED CELL DISTRIBUTION WIDTH 13.9 % (11.5-15.0); WHITE BLOOD COUNT (AUTO) 8.6 K/uL (4.3-11.0)
[2023-04-24 08:18] LABS: CALCIUM, SERUM 9.2 mg/dL (8.5-10.1); CARBON DIOXIDE 37 mmol/L (21-32); CHLORIDE 97 mmol/L (98-107); GLUCOSE 273 mg/dL (74-106); MAGNESIUM 2.3 mg/dL (1.8-2.4); PHOSPHORUS 3.6 mg/dL (2.5-4.9); POTASSIUM 4.9 mmol/L (3.5-5.1); SODIUM SERUM 136 mmol/L (136-145); UREA NITROGEN, BLOOD 45 mg/dL (7-18)
[2023-04-24] MEDS: SACUBITRIL/VALSARTAN 1 EACH TABLET GT SCH (09:12)
[2023-04-24] MEDS: MULTIVIT W/MINERALS 1 TAB TABLET GT SCH (09:12)
[2023-04-24] MEDS: CHLORHEXIDINE GLUCONATE 15 ML UDC MM SCH (09:12)
[2023-04-24] MEDS: CARVEDILOL 3.125 MG TABLET GT SCH (09:13)
[2023-04-24] MEDS: CLOPIDOGREL BISULFATE 75 MG TABLET GT SCH (09:13)
[2023-04-24] MEDS: FAMOTIDINE (20 MG) 20 MG TABLET GT SCH (09:14)
[2023-04-24] MEDS: PROSOURCE / PROSTAT (PYXIS) 30 ML UDC GT SCH (09:15)
[2023-04-24] MEDS: INSULIN GLARGINE, 100 UNIT/ML CARTRIDGE SQ SCH (09:16)
[2023-04-24 12:00] VITALS: BP 133/78; TEMP 98.6; O2SAT 100
[2023-04-24] MEDS ORDERED: FLUC100T8 GT (12:32)
[2023-04-24] MEDS ORDERED: METR500T GT (12:32)
== END 2023-04-24 16:29 | DRG 870 ==
LOC: ER 11:13 → ICU 19:46 → TELE1 04-16 13:37
PROVIDERS: ADMIT Nurse Practitioner Acute Care; ATTEND Nurse Practitioner Acute Care
PROC: 5A1955Z Respiratory Ventilation, Greater than 96 Consecutive Hours (ICD-10-PCS; principal; 2023-04-12)
PROC: 06HM33Z Insertion of Infusion Device into Right Femoral Vein, Percutaneous Approach (ICD-10-PCS; 2023-04-12)
PROC: B54BZZA Ultrasonography of Right Lower Extremity Veins, Guidance (ICD-10-PCS; 2023-04-12)
PROC: 05H533Z Insertion of Infusion Device into Right Subclavian Vein, Percutaneous Approach (ICD-10-PCS; 2023-04-12)
PROC: B546ZZA Ultrasonography of Right Subclavian Vein, Guidance (ICD-10-PCS; 2023-04-12)
DX: A41.9 Sepsis, unspecified organism (principal); E43 Unspecified severe protein-calorie malnutrition; G93.41 Metabolic encephalopathy; I21.A1 Myocardial infarction type 2; R65.21 Severe sepsis with septic shock; J15.6 Pneumonia due to other Gram-negative bacteria; J69.0 Pneumonitis due to inhalation of food and vomit; J96.01 Acute respiratory failure with hypoxia; E87.0 Hyperosmolality and hypernatremia; F03.92 Unspecified dementia, unspecified severity, with psychotic disturbance; N17.9 Acute kidney failure, unspecified; D68.69 Other thrombophilia; Z99.11 Dependence on respirator [ventilator] status; J98.11 Atelectasis; E11.42 Type 2 diabetes mellitus with diabetic polyneuropathy; E86.0 Dehydration; E86.1 Hypovolemia; E87.5 Hyperkalemia; E88.09 Other disorders of plasma-protein metabolism, not elsewhere classified; I10 Essential (primary) hypertension; Z79.84 Long term (current) use of oral hypoglycemic drugs; Z86.73 Personal history of transient ischemic attack (TIA), and cerebral infarction without residual deficits; R74.01 Elevation of levels of liver transaminase levels; L89.156 Pressure-induced deep tissue damage of sacral region; Z74.09 Other reduced mobility; Z68.20 Body mass index [BMI] 20.0-20.9, adult; Z20.822 Contact with and (suspected) exposure to COVID-19; Z93.0 Tracheostomy status; J06.9 Acute upper respiratory infection, unspecified; K94.21 Gastrostomy hemorrhage; Z79.4 Long term (current) use of insulin; E11.65 Type 2 diabetes mellitus with hyperglycemia
CPT/HCPCS: 31720; 36410; 36415; 36600; 71045-TC; 71250-TC; 74018; 80048-TC; 80076-TC; 80202-TC; 82803-TC; 82962-TC; 83605-TC; 83735-TC; 84100-TC; 84300-TC; 84443-TC; 84484-TC; 84550-TC; 85025-TC; 85730-TC; 87040-TC; 87081-TC; 87086-TC; 94002-TC; 94003-TC; 94640-TC; 94760-TC; 94762-TC; 94799-TC; A4223; A6253; A6403; A7526; C9803; G0378; J0692; J1815; J2060; J2405; J3370; J3490; J7030; J7050; J7060

== ENCOUNTER 2024-11-11 09:28 | Inpatient (IN) | payer MEDICARE, OTHER ==
[~2024-11-11] VITALS: Ht 175.3 cm; Wt 76.2 kg
[2024-11-11] VITALS (29 sets, daily range): BP systolic 74–149; BP diastolic 49–77; TEMP 97.3–98.6; O2SAT 84–100
[~2024-11-11 09:28] MED LIST changes: -*INS REG3 SQ; +ACET-2605 GT; +ACET-868 GT; -ACET325T53 PO; -AMLO-212 PO; -ASPI-1169 PO; -ATEN50TA PO; -ATOR40TA PO; +BISA10SU11 RC; -BISA10SU61 RC; +CANA100T GT; +CARV3.12 GT; +CHLO473M5 MM; -CHOL100044 PO; +CLON0.1T GT; +CLOP75TA15 GT; -DOCU-141 PO; +FAMO20TA8 GT; +FLUC100T8 GT; -GABA-532 PO; -GABA100C PO; -HYDR-4384 PO; -INSU100V28 SQ; +INSU100V3 SQ; +IPRA4AER IH; -LOSA50TA3 PO; -MAGN400O6 PO; -METF-440 PO; +METR500T GT; +MULT-213 GT; -MULT-447 PO; -NA P133E RC; -NITR0.4T48 SL; +SACU1TAB7 GT; -SENN-261 PO; +SPIR25TA6 GT; -ZOLP5TAB2 PO
[2024-11-11] MEDS: NOREPINEPHRINE 8 MG in IV D5W 242 ML IV PRN (10:38)
[2024-11-11] MEDS ORDERED: DEXTROSE 50%-WATER 50 ML DISP.SYRIN IV PRN (11:00)
[2024-11-11] MEDS ORDERED: Z GUARD REMEDY 4 OZ OINT TP PRN (11:00)
[2024-11-11] MEDS ORDERED: MAGNESIUM HYDROXIDE 30 ML UDC PO PRN (11:00)
[2024-11-11] MEDS ORDERED: ACETAMINOPHEN 325 MG TABLET PO PRN (11:00)
[2024-11-11] MEDS ORDERED: ONDANSETRON HCL/PF 4 MG/2 ML VIAL IVP PRN (11:00)
[2024-11-11] MEDS ORDERED: MAG HYDROX/AL HYDROX/SIMETH 30 ML UDC PO PRN (11:00)
[2024-11-11 11:54] LABS: ALANINE AMINOTRANSFERASE 17 U/L (12-78); ALBUMIN 2.5 g/dL (3.4-5.0); ALKALINE PHOSPHATASE 113 U/L (46-116); ASPARTATE AMINOTRANSFERASE 14 U/L (15-37); BILIRUBIN,TOTAL 0.4 mg/dL (0.2-1.0); CALCIUM, SERUM 8.8 mg/dL (8.5-10.1); CARBON DIOXIDE 32 mmol/L (21-32); CHLORIDE 99 mmol/L (98-107); CREATININE 1.6 mg/dL (0.6-1.3); GLUCOSE 304 mg/dL (74-106); MAGNESIUM 2.7 mg/dL (1.8-2.4); PHOSPHORUS 4.1 mg/dL (2.5-4.9); POTASSIUM 4.6 mmol/L (3.5-5.1); SODIUM SERUM 135 mmol/L (136-145); TOTAL PROTEIN, SERUM 7.6 g/dL (6.4-8.2); UREA NITROGEN, BLOOD 70 mg/dL (7-18)
[2024-11-11] MEDS: BLOOD SUGAR DIAGNOSTIC 1 EACH STRIP IN SCH (12:00)
[2024-11-11 12:33] LABS: BASOPHILS % (AUTO) 0.2 % (0.0-2.0); EOSINOPHILS % (AUTO) 0.1 % (0.0-6.0); HEMATOCRIT 24 % (39-51); HEMOGLOBIN 7.8 g/dL (13.5-17.5); LYMPHOCYTES # (AUTO) 0.8 K/uL (0.8-4.8); LYMPHOCYTES % (AUTO) 5.3 % (20.0-44.0); MEAN CORPUSCULAR HEMOGLOBIN 29 PG (26.0-33.0); MEAN CORPUSCULAR HGB CONC 33 g/dl (31.0-36.0); MEAN CORPUSCULAR VOLUME 87 fL (80-96); MONOCYTES # (AUTO) 1.2 K/uL (0.1-1.30); MONOCYTES % (AUTO) 7.9 % (2.0-12.0); NEUTROPHILS # (AUTO) 13.5 K/uL (1.8-8.9); NEUTROPHILS % (AUTO) 86.5 % (43.0-81.0); PLATELET COUNT (AUTO) 321 K/uL (150-450); RED BLOOD CELL COUNT(AUTO) 2.72 MIL/uL (4.5-6.0); RED CELL DISTRIBUTION WIDTH 14.5 % (11.5-15.0); WHITE BLOOD COUNT (AUTO) 15.6 K/uL (4.3-11.0)
[2024-11-11 12:43] LABS: LACTIC ACID 2.1 mmol/L (0.4-2.0)
[2024-11-11] MEDS ORDERED: VANCOMYCIN HCL 1 GM in IV D5W 260 ML IV ONE (13:00)
[2024-11-11] MEDS ORDERED: MEROPENEM 1 G in IV NS 0.9% 100 ML IV SCH (13:00)
[2024-11-11] MEDS: ZOSYN IVPB 3.375 G in IV D5W 50ml IV SCH (14:22)
[2024-11-11] MEDS: VANCOMYCIN 1 GM in IV D5W 250ml IV ONE ×2 (14:23→16:07)
[2024-11-11] MEDS: HEPARIN SODIUM, PORCINE 5000 UNITS/1 ML VIAL SQ SCH (14:37)
[2024-11-11 14:59] LABS: BILIRUBIN,DIRECT 0.2 mg/dL (0.0-0.2)
[2024-11-11] MEDS ORDERED: MECL-182 GT (15:02)
[2024-11-11] MEDS ORDERED: NUT.237L30 GT (15:02)
[2024-11-11] MEDS ORDERED: MAGN400O6 GT (15:02)
[2024-11-11] MEDS ORDERED: DEXT50DI8 IV (15:02)
[2024-11-11] MEDS ORDERED: ALLA266C2 TP (15:02)
[2024-11-11] MEDS ORDERED: LEVO75TA7 GT (15:02)
[2024-11-11] MEDS ORDERED: METO5SOL2 GT (15:02)
[2024-11-11] MEDS ORDERED: HYDR-4076 GT (15:02)
[2024-11-11] MEDS ORDERED: HYDR1SOL TP (15:02)
[2024-11-11] MEDS ORDERED: MAG30ORA GT (15:02)
[2024-11-11] MEDS ORDERED: GUAI100S11 GT (15:02)
[2024-11-11] MEDS ORDERED: IPRA0.2S49 NEB ×2 (15:02)
[2024-11-11] MEDS ORDERED: POLY15DR31 EACHEYE (15:02)
[2024-11-11] MEDS ORDERED: ALBU2.5V13 NEB ×2 (15:02)
[2024-11-11] MEDS ORDERED: PANT40TA49 GT (15:02)
[2024-11-11] MEDS ORDERED: HEPA500039 SQ (15:02)
[2024-11-11 15:12] LABS: LACTIC ACID REFLEX 1.2 mmol/L (0.4-1.9)
[2024-11-11] MEDS: IV D5W 1,000 ML IV PRN (16:04)
[2024-11-11] MEDS: CHLORHEXIDINE GLUCONATE 15 ML UDC MM SCH (17:14)
[2024-11-11] MEDS: INSULIN REGULAR, HUMAN 100 UNIT/ML 3 ML VIAL SQ PRN (17:52)
[2024-11-11] MEDS: INSULIN GLARGINE, 100 UNIT/ML CARTRIDGE SQ SCH (21:43)
[2024-11-12] VITALS (54 sets, daily range): BP systolic 87–129; BP diastolic 42–98; TEMP 98.3–99; O2SAT 91–100
[2024-11-12 04:41] LABS: BASOPHILS % (AUTO) 0.3 % (0.0-2.0); EOSINOPHILS # (AUTO) 0.4 K/uL (0.0-0.7); EOSINOPHILS % (AUTO) 3.4 % (0.0-6.0); HEMATOCRIT 21 % (39-51); LYMPHOCYTES % (AUTO) 9.7 % (20.0-44.0); MEAN CORPUSCULAR HEMOGLOBIN 29 PG (26.0-33.0); MEAN CORPUSCULAR HGB CONC 33 g/dl (31.0-36.0); MEAN CORPUSCULAR VOLUME 87 fL (80-96); MONOCYTES # (AUTO) 0.6 K/uL (0.1-1.30); MONOCYTES % (AUTO) 5.7 % (2.0-12.0); NEUTROPHILS # (AUTO) 8.3 K/uL (1.8-8.9); NEUTROPHILS % (AUTO) 80.9 % (43.0-81.0); PLATELET COUNT (AUTO) 289 K/uL (150-450); RED BLOOD CELL COUNT(AUTO) 2.36 MIL/uL (4.5-6.0); RED CELL DISTRIBUTION WIDTH 14.3 % (11.5-15.0); WHITE BLOOD COUNT (AUTO) 10.3 K/uL (4.3-11.0)
[2024-11-12 05:13] LABS: CARBON DIOXIDE 33 mmol/L (21-32); CHLORIDE 97 mmol/L (98-107); CREATININE 1.2 mg/dL (0.6-1.3); GLUCOSE 228 mg/dL (74-106); MAGNESIUM 2.6 mg/dL (1.8-2.4); PHOSPHORUS 2.7 mg/dL (2.5-4.9); POTASSIUM 4.1 mmol/L (3.5-5.1); SODIUM SERUM 133 mmol/L (136-145); UREA NITROGEN, BLOOD 60 mg/dL (7-18)
[2024-11-12 05:18] LABS: CALCIUM, SERUM 8.2 mg/dL (8.5-10.1)
[2024-11-12 05:32] LABS: HEMOGLOBIN 6.8 g/dL (13.5-17.5)
[2024-11-12 05:38] LABS: ANISOCYTOSIS 1+; BASOPHILS % (MANUAL) 0 % (0.0-2.0); EOSINOPHILS % (MANUAL) 3 % (0-4); HYPOCHROMASIA FEW; LYMPHOCYTES % (MANUAL) 13 % (16-48); MONOCYTES % (MANUAL) 6 % (0-11.0); NEUTROPHILS % (MANUAL) 78 (42-76); PLATELET ESTIMATE ADEQUATE
[2024-11-12] MEDS: MULTIVIT W/MINERALS 1 TAB TABLET GT SCH (08:41)
[2024-11-12] MEDS: IV NS 0.9% 500 ML IV ONE (08:41)
[2024-11-12] MEDS: FAMOTIDINE (20 MG) 20 MG TABLET GT SCH (08:41)
[2024-11-12] MEDS ORDERED: CLOPIDOGREL BISULFATE 75 MG TABLET GT SCH (09:00)
[2024-11-12 11:57] LABS: CALCIUM, SERUM 8.4 mg/dL (8.5-10.1); CARBON DIOXIDE 31 mmol/L (21-32); CHLORIDE 97 mmol/L (98-107); CREATININE 1.1 mg/dL (0.6-1.3); GLUCOSE 165 mg/dL (74-106); POTASSIUM 4.2 mmol/L (3.5-5.1); SODIUM SERUM 130 mmol/L (136-145); UREA NITROGEN, BLOOD 54 mg/dL (7-18)
[2024-11-12] MEDS: EPOETIN ALFA (10,000 UNIT) 10,000 UNIT/ML VIAL SQ ONE (12:19)
[2024-11-12] MEDS ORDERED: VANCOMYCIN HCL 1.25 GM in IV D5W 250 ML IV SCH (14:00)
[2024-11-12] MEDS: VANCOMYCIN 750 MG in IV D5W 250 ML IV SCH (14:22)
[2024-11-12 17:42] LABS: APPEARANCE,URINE CLEAR (CLEAR); BILIRUBIN,URINE NEGATIVE (NEGATIVE); BLOOD, URINE 1+ Ery/uL (NEGATIVE); COLOR,URINE YELLOW (YELLOW); KETONES,URINE NEGATIVE (NEGATIVE); LEUKOCYTE ESTERASE ,URINE NEGATIVE (NEGATIVE); NITRITE, URINE NEGATIVE (NEGATIVE); PROTEIN,URINE NEGATIVE (NEGATIVE); UGLUCOSE NEGATIVE (NEGATIVE); UROBILINOGEN,URINE 0.2 EU/dL (0.2)
[2024-11-12 20:45] LABS: ADD URINE CULTURE NO; BACTERIA,URINE Few /HPF (None Seen); SQUAMOUS EPITHELIAL CELL,UR Few /HPF (None Seen); WBC,URINE 0-2 /HPF (0-3)
[2024-11-12 20:46] LABS: EOSINOPHIL,URINE None Seen
[2024-11-13] VITALS (14 sets, daily range): BP systolic 99–115; BP diastolic 61–73; TEMP 98–98.6; O2SAT 95–100
[2024-11-13 04:43] LABS: BASOPHILS % (AUTO) 0.4 % (0.0-2.0); EOSINOPHILS # (AUTO) 0.4 K/uL (0.0-0.7); EOSINOPHILS % (AUTO) 6.6 % (0.0-6.0); HEMATOCRIT 21 % (39-51); LYMPHOCYTES # (AUTO) 0.9 K/uL (0.8-4.8); LYMPHOCYTES % (AUTO) 15.3 % (20.0-44.0); MEAN CORPUSCULAR HEMOGLOBIN 29 PG (26.0-33.0); MEAN CORPUSCULAR HGB CONC 33 g/dl (31.0-36.0); MEAN CORPUSCULAR VOLUME 87 fL (80-96); MONOCYTES # (AUTO) 0.4 K/uL (0.1-1.30); MONOCYTES % (AUTO) 7.1 % (2.0-12.0); NEUTROPHILS # (AUTO) 4.2 K/uL (1.8-8.9); NEUTROPHILS % (AUTO) 70.6 % (43.0-81.0); PLATELET COUNT (AUTO) 284 K/uL (150-450); RED BLOOD CELL COUNT(AUTO) 2.43 MIL/uL (4.5-6.0); RED CELL DISTRIBUTION WIDTH 14.5 % (11.5-15.0)
[2024-11-13 05:14] LABS: HEMOGLOBIN 6.9 g/dL (13.5-17.5)
[2024-11-13 05:29] LABS: BILIRUBIN,TOTAL 0.4 mg/dL (0.2-1.0); CALCIUM, SERUM 8.6 mg/dL (8.5-10.1); CREATININE 0.9 mg/dL (0.6-1.3); MAGNESIUM 2.7 mg/dL (1.8-2.4); PHOSPHORUS 2.4 mg/dL (2.5-4.9); POTASSIUM 3.9 mmol/L (3.5-5.1); TOTAL PROTEIN, SERUM 6.7 g/dL (6.4-8.2)
[2024-11-13 05:45] LABS: BASOPHILS % (MANUAL) 0 % (0.0-2.0); EOSINOPHILS % (MANUAL) 5 % (0-4); LYMPHOCYTES % (MANUAL) 11 % (16-48); MONOCYTES % (MANUAL) 9 % (0-11.0); NEUTROPHILS % (MANUAL) 75 (42-76); PLATELET ESTIMATE ADEQUATE
[2024-11-13] MEDS: GLUCERNA 1.2 1,000 ML BOTTLE NG PRN (06:22)
[2024-11-13 08:13] LABS: CREATININE, URINE 13.5 MG/DL (30.0-125.0); URINE TOTAL PROTEIN 21.2 mg/dL (0-11.9)
[2024-11-13] MEDS: IV D5/ 0.9% NACL 1,000 ML IV PRN (09:17)
[2024-11-13 13:03] LABS: CALCIUM, SERUM 8.8 mg/dL (8.5-10.1); CREATININE 0.9 mg/dL (0.6-1.3); POTASSIUM 4.1 mmol/L (3.5-5.1)
[2024-11-13] MEDS: VANCOMYCIN 750 MG in IV D5W 250 ML IV SCH (13:03)
[2024-11-14 08:11] LABS: PTH, INTACT 12 pg/mL (15-65)
== END 2024-11-13 13:20 | DRG 871 ==
LOC: ICU 09:28
PROVIDERS: ADMIT Nurse Practitioner Acute Care
PROC: 5A1945Z Respiratory Ventilation, 24-96 Consecutive Hours (ICD-10-PCS; principal; 2024-11-11)
DX: A41.9 Sepsis, unspecified organism (principal); R65.21 Severe sepsis with septic shock; J96.10 Chronic respiratory failure, unspecified whether with hypoxia or hypercapnia; K86.1 Other chronic pancreatitis; J98.11 Atelectasis; N17.9 Acute kidney failure, unspecified; Z99.11 Dependence on respirator [ventilator] status; J90 Pleural effusion, not elsewhere classified; E87.1 Hypo-osmolality and hyponatremia; E87.3 Alkalosis; G93.40 Encephalopathy, unspecified; N39.0 Urinary tract infection, site not specified; G93.49 Other encephalopathy; R13.10 Dysphagia, unspecified; Z93.0 Tracheostomy status; Z93.1 Gastrostomy status; M89.8X9 Other specified disorders of bone, unspecified site; D64.9 Anemia, unspecified; E03.9 Hypothyroidism, unspecified; E11.9 Type 2 diabetes mellitus without complications; I11.9 Hypertensive heart disease without heart failure
CPT/HCPCS: 31720; 36415; 71045-TC; 76770-TC; 80048-TC; 80053-TC; 80202-TC; 81001; 82248-TC; 82533; 82550-TC; 82570-TC; 82962-TC; 83605-TC; 83735-TC; 83970; 84100-TC; 84155; 84165; 84300-TC; 85025-TC; 86850-TC; 87040-TC; 87081-TC; 87086-TC; 94003-TC; 94762-TC; 94799-TC; A4223; G0378; J0885; J1644; J1815; J2185; J2543; J3370; J3371; J7030; J7040; J7042; J7050; J7060; J7070

== ENCOUNTER 2025-07-01 13:20 | Inpatient (IN) | payer MEDICARE, OTHER ==
[~2025-07-01] VITALS: Ht 170.2 cm; Wt 74.8 kg
[~2025-07-01 13:20] MED LIST changes: -ACET-2605 GT; +ALBU2.5V13 NEB; +ALLA266C2 TP; -CANA100T GT; -CARV3.12 GT; -CLON0.1T GT; +DEXT50DI8 IV; -FAMO20TA8 GT; -FLUC100T8 GT; +GUAI100S11 GT; +HEPA500039 SQ; +HYDR-4076 GT; +HYDR1SOL TP; +IPRA0.2S49 NEB; -IPRA4AER IH; +LEVO75TA7 GT; +MAG30ORA GT; +MAGN400O6 GT; +MECL-182 GT; +METO5SOL2 GT; -METR500T GT; +NUT.237L30 GT; +PANT40TA49 GT; +POLY15DR31 EACHEYE; -SPIR25TA6 GT
[2025-07-01 13:43] LABS: PLATELET COUNT (AUTO) 157 K/uL (150-450); RED BLOOD CELL COUNT(AUTO) 3.12 MIL/uL (4.5-6.0); RED CELL DISTRIBUTION WIDTH 15.3 % (11.5-15.0); WHITE BLOOD COUNT (AUTO) 12.2 K/uL (4.3-11.0)
[2025-07-01 13:49] LABS: CALCIUM, SERUM 9.3 mg/dL (8.5-10.1); CREATININE 1.4 mg/dL (0.6-1.3); SODIUM SERUM 135 mmol/L (136-145); UREA NITROGEN, BLOOD 33 mg/dL (7-18)
[2025-07-01 13:53] LABS: ABG BASE EXCESS 6.5 mmol/L (-2.0-3.0); ABG OXYGEN SATURATION 98.1 % (94.0-98.0); ABG PCO2 38.0 mmHg (35.0-48.0); ABG PH 7.514 (7.350-7.450); ABG PO2 115.9 mmHg (83.0-108.0); ABG TOTAL HEMOGLOBIN 9.7 G/dL (13.5-17.5); FRACTIONATED INSPIRED OXYGEN 40.0 %; PEEP,BG 5 cm H2O; SET RATE, BG 16.0; SITE, ABG RIGHT RADIAL; VT, ABG 500 mL
[2025-07-01 13:58] LABS: LACTIC ACID 2.3 mmol/L (0.4-2.0)
[2025-07-01 14:03] LABS: INR 1.08 (0.91-1.10)
[2025-07-01 14:04] LABS: ASPARTATE AMINOTRANSFERASE 12 U/L (15-37); TOTAL PROTEIN, SERUM 7.3 g/dL (6.4-8.2)
[2025-07-01] MEDS: PIPERACILLIN /TAZOBACTAM 3.375 G in IV D5W 50 ML IV ONE (14:05)
[2025-07-01] MEDS: IV NS 0.9% 1,000 ML BAG IV ONE (14:05)
[2025-07-01] MEDS ORDERED: INSU100I24 SQ (14:49)
[2025-07-01] MEDS ORDERED: INSU100V42 SQ (14:49)
[2025-07-01] MEDS ORDERED: ONDA-97 GT (14:49)
[2025-07-01] MEDS ORDERED: LEVO100T9 GT (14:49)
[2025-07-01] MEDS ORDERED: SIME80TA15 GT (14:49)
[2025-07-01] MEDS ORDERED: CARV3.122 GT (14:49)
[2025-07-01] MEDS ORDERED: ACID1TAB12 GT (14:49)
[2025-07-01] MEDS ORDERED: PANT40SU2 GT (14:49)
[2025-07-01] MEDS ORDERED: ALBU2.5V38 NEB (14:49)
[2025-07-01] MEDS ORDERED: ERYT200S16 GT (14:49)
[2025-07-01] MEDS: VANCOMYCIN 1 GM in IV D5W 250 ML IV ONE (15:01)
[2025-07-01] MEDS ORDERED: ONDANSETRON HCL/PF 4 MG/2 ML VIAL IVP PRN (15:30)
[2025-07-01] MEDS ORDERED: ACETAMINOPHEN 650 MG/SUPP.RECT RC PRN (15:30)
[2025-07-01] MEDS ORDERED: DOSING PER PHARMACY-VANCOMYCIN IV XX PRN ×2 (15:30→16:30)
[2025-07-01] MEDS ORDERED: Z GUARD REMEDY 4 OZ OINT TP PRN (15:30)
[2025-07-01 15:39] LABS: APPEARANCE,URINE CLEAR (CLEAR); BLOOD, URINE NEGATIVE Ery/uL (NEGATIVE); LEUKOCYTE ESTERASE ,URINE NEGATIVE (NEGATIVE); NITRITE, URINE NEGATIVE (NEGATIVE); UGLUCOSE NEGATIVE (NEGATIVE)
[2025-07-01] MEDS ORDERED: IPRATROPIUM NEB FS 0.5 MG/2.5 ML AMPUL.NEB NEB PRN (16:00)
[2025-07-01] MEDS ORDERED: DEXTROSE 50%-WATER 50 ML DISP.SYRIN IV PRN (16:00)
[2025-07-01] MEDS ORDERED: ALBUTEROL FS 2.5 MG/3 ML VIAL.NEB NEB PRN (16:00)
[2025-07-01] MEDS ORDERED: INSULIN REGULAR, HUMAN 100 UNIT/ML 3 ML VIAL SQ PRN (16:00)
[2025-07-01 16:08] LABS: ADD URINE CULTURE NO; SQUAMOUS EPITHELIAL CELL,UR 0-2 /HPF (None Seen)
[2025-07-01] MEDS: PANTOPRAZOLE 40 MG VIAL IV SCH (17:23)
[2025-07-01] MEDS: IV D5/ 0.9% NACL 1,000 ML IV PRN (17:42)
[2025-07-01] MEDS: BLOOD SUGAR DIAGNOSTIC 1 EACH STRIP IN SCH (18:23)
[2025-07-01 20:00] VITALS: BP 123/47; TEMP 97.7; O2SAT 100
[2025-07-01] MEDS ORDERED: MEROPENEM 500 MG in IV NS 0.9% 50 ML IV SCH (21:00)
[2025-07-01] MEDS: MEROPENEM 1 G in IV NS 0.9% 100 ML IV SCH (21:12)
[2025-07-02] VITALS: BP 115/76; TEMP 98.4; O2SAT 100
[2025-07-02] MEDS: INSULIN REGULAR, HUMAN 100 UNIT/ML 3 ML VIAL SQ PRN ×2 (00:22→18:11)
[2025-07-02 04:00] VITALS: BP 135/64; TEMP 98.4; O2SAT 100
[2025-07-02 08:00] VITALS: BP 140/68; TEMP 98.4; O2SAT 100
[2025-07-02 09:13] LABS: APPEARANCE,URINE CLEAR (CLEAR); BLOOD, URINE NEGATIVE Ery/uL (NEGATIVE); LEUKOCYTE ESTERASE ,URINE 1+ (NEGATIVE); NITRITE, URINE NEGATIVE (NEGATIVE); UGLUCOSE NEGATIVE (NEGATIVE)
[2025-07-02 09:14] LABS: CREATININE, URINE 89.7 MG/DL (30.0-125.0); URINE SODIUM, RANDOM 16.0 mmol/l (40-220); URINE TOTAL PROTEIN 80.8 mg/dL (0-11.9)
[2025-07-02 09:30] LABS: ADD URINE CULTURE YES; EOSINOPHIL,URINE None Seen; SQUAMOUS EPITHELIAL CELL,UR Rare /HPF (None Seen)
[2025-07-02] MEDS ORDERED: POLYVINYL ALCOHOL 15 ML BOTTLE EACHEYE SCH (09:30)
[2025-07-02] MEDS ORDERED: GUAIFENESIN 300 MG/15 ML UDC GT PRN (09:30)
[2025-07-02] MEDS ORDERED: BISACODYL SUPP (10 MG) 10 MG/SUPP.RECT SUPP.RECT RC PRN (09:30)
[2025-07-02] MEDS ORDERED: DEXTROSE 50%-WATER 50 ML DISP.SYRIN IV PRN ×2 (09:30)
[2025-07-02] MEDS ORDERED: MULTIVITAMIN LIQ 5 ML UDC GT SCH (09:30)
[2025-07-02] MEDS ORDERED: HOME MED MISCELLANEOUS XX SCH ×2 (09:30)
[2025-07-02] MEDS ORDERED: MAGNESIUM HYDROXIDE 30 ML UDC GT PRN (09:30)
[2025-07-02] MEDS ORDERED: HEPARIN SODIUM, PORCINE 5000 UNITS/1 ML VIAL SQ SCH (10:30)
[2025-07-02] MEDS: CHLORHEXIDINE GLUCONATE 15 ML UDC MM SCH (11:03)
[2025-07-02] MEDS: ACIDOPHILUS/BULGARICUS 1 EACH TAB.CHEW GT SCH (11:03)
[2025-07-02] MEDS: LACTULOSE 10 G/15 ML UDC (PYXIS) GT ONE (11:03)
[2025-07-02] MEDS: SIMETHICONE 80 MG TAB.CHEW GT SCH (11:04)
[2025-07-02] MEDS: HYDROGEN PEROXIDE 480 ML BOTTLE TP SCH (11:04)
[2025-07-02] MEDS: BISACODYL SUPP (10 MG) 10 MG/SUPP.RECT SUPP.RECT RC ONE (11:04)
[2025-07-02] MEDS: CLOPIDOGREL BISULFATE 75 MG TABLET GT SCH (11:04)
[2025-07-02] MEDS: MULTIVITAMINS,THERAGRAN 1 UDTAB TABLET GT SCH (11:20)
[2025-07-02] MEDS: HEPARIN SODIUM, PORCINE 5000 UNITS/1 ML VIAL SQ SCH (11:20)
[2025-07-02] MEDS: CARBOXYMETHYLCELLULOSE SODIUM 1 EA TUBE EACHEYE SCH (11:39)
[2025-07-02] MEDS: BLOOD SUGAR DIAGNOSTIC 1 EACH STRIP IN SCH (11:40)
[2025-07-02 12:00] VITALS: BP 134/87; TEMP 98.1; O2SAT 100
[2025-07-02] MEDS ORDERED: BLOOD SUGAR DIAGNOSTIC 1 EACH STRIP IN SCH (12:00)
[2025-07-02] MEDS: ERYTHROMYCIN ETHYLSUCCINATE 200 MG/5 ML BOTTLE GT SCH (12:35)
[2025-07-02] MEDS: METOCLOPRAMIDE HCL 10 MG/10 ML UDC GT SCH (12:35)
[2025-07-02] MEDS: GLUCERNA 1.2 1,000 ML BOTTLE NG PRN (13:17)
[2025-07-02 14:43] LABS: CALCIUM, SERUM 9.0 mg/dL (8.5-10.1); CREATININE 1.0 mg/dL (0.6-1.3); SODIUM SERUM 140.0 mmol/L (136-145); UREA NITROGEN, BLOOD 27.0 mg/dL (7-18)
[2025-07-02] MEDS: VANCOMYCIN 1 GM in IV D5W 250ml IV SCH (15:05)
[2025-07-02 16:00] VITALS: BP 129/68; TEMP 98.6; O2SAT 100
[2025-07-02 16:10] LABS: PLATELET COUNT (AUTO) 128 K/uL (150-450); RED BLOOD CELL COUNT(AUTO) 2.62 MIL/uL (4.5-6.0); RED CELL DISTRIBUTION WIDTH 15.4 % (11.5-15.0); WHITE BLOOD COUNT (AUTO) 5.4 K/uL (4.3-11.0)
[2025-07-02] MEDS: Z GUARD REMEDY 4 OZ OINT TP PRN (16:48)
[2025-07-02] MEDS: POTASSIUM CHLORIDE 20 MEQ POWDER PACKET GT ONE (17:08)
[2025-07-02] MEDS: CARVEDILOL 3.125 MG TABLET GT SCH (17:08)
[2025-07-02 18:07] LABS: EOSINOPHILS % (MANUAL) 1 % (0-4); LYMPHOCYTES % (MANUAL) 15 % (16-48); MONOCYTES % (MANUAL) 4 % (0-11.0); NEUTROPHILS % (MANUAL) 80 (42-76); PLATELET ESTIMATE DECREASED
[2025-07-02 20:00] VITALS: BP 125/67; TEMP 98.6; O2SAT 100
[2025-07-02] MEDS: Z GUARD REMEDY 4 OZ OINT TP SCH (21:43)
[2025-07-03] VITALS: BP 143/70; TEMP 98.4; O2SAT 100
[2025-07-03] MEDS: VANCOMYCIN 750 MG in IV D5W 250 ML IV SCH (02:16)
[2025-07-03 04:00] VITALS: BP 116/69; TEMP 98.4; O2SAT 100
[2025-07-03] MEDS: LEVOTHYROXINE SODIUM 100 MCG TABLET GT SCH (05:32)
[2025-07-03 08:00] VITALS: BP 135/75; TEMP 98.6; O2SAT 100
[2025-07-03 08:24] LABS: PLATELET COUNT (AUTO) 143 K/uL (150-450); RED BLOOD CELL COUNT(AUTO) 2.74 MIL/uL (4.5-6.0); RED CELL DISTRIBUTION WIDTH 15.8 % (11.5-15.0); WHITE BLOOD COUNT (AUTO) 5.1 K/uL (4.3-11.0)
[2025-07-03 08:38] LABS: ASPARTATE AMINOTRANSFERASE 12.0 U/L (15-37); CALCIUM, SERUM 8.4 mg/dL (8.5-10.1); CREATININE 0.8 mg/dL (0.6-1.3); PHOSPHORUS 2.1 mg/dL (2.5-4.9); SODIUM SERUM 137.0 mmol/L (136-145); TOTAL PROTEIN, SERUM 6.3 g/dL (6.4-8.2); UREA NITROGEN, BLOOD 25.0 mg/dL (7-18)
[2025-07-03] MEDS: MECLIZINE HCL 25 MG TABLET GT SCH (09:07)
[2025-07-03] MEDS: PANTOPRAZOLE 40 MG/PACK PACK GT SCH (09:08)
[2025-07-03 09:35] LABS: CREATINE KINASE, TOTAL 13.0 U/L (39-308)
[2025-07-03 12:00] VITALS: BP 137/69; TEMP 99; O2SAT 100
[2025-07-03 14:54] LABS: CALCIUM, SERUM 9.0 mg/dL (8.5-10.1); CREATININE 1.0 mg/dL (0.6-1.3); SODIUM SERUM 140.0 mmol/L (136-145); UREA NITROGEN, BLOOD 28.0 mg/dL (7-18)
[2025-07-03] MEDS: ACETAMINOPHEN 325 MG TABLET MC PRN (15:42)
[2025-07-03 16:00] VITALS: BP 142/73; TEMP 99.1; O2SAT 100
[2025-07-03] MEDS: NEUTRA PHOS 1 POWD.PACKET PO ONE (17:19)
[2025-07-03 18:07] LABS: OCCULT BLOOD STOOL NEGATIVE (NEGATIVE)
[2025-07-03 20:00] VITALS: BP 120/64; TEMP 98.4; O2SAT 100
[2025-07-03] MEDS: SENNOSIDES 8.6 MG TABLET GT SCH (21:57)
[2025-07-04] VITALS: BP 136/68; TEMP 98.2; O2SAT 100
[2025-07-04 04:00] VITALS: BP 137/70; TEMP 98.2; O2SAT 100
[2025-07-04] MEDS: VANCOMYCIN HCL 1.25 GM in IV D5W 250 ML IV SCH (04:14)
[2025-07-04 08:00] VITALS: BP 151/65; TEMP 98.9; O2SAT 100
[2025-07-04 08:02] LABS: PLATELET COUNT (AUTO) 148 K/uL (150-450); RED BLOOD CELL COUNT(AUTO) 2.82 MIL/uL (4.5-6.0); RED CELL DISTRIBUTION WIDTH 15.5 % (11.5-15.0); WHITE BLOOD COUNT (AUTO) 3.9 K/uL (4.3-11.0)
[2025-07-04 08:15] LABS: CALCIUM, SERUM 8.6 mg/dL (8.5-10.1); CREATININE 0.9 mg/dL (0.6-1.3); SODIUM SERUM 140.0 mmol/L (136-145); UREA NITROGEN, BLOOD 27.0 mg/dL (7-18)
[2025-07-04 12:00] VITALS: BP 147/77; TEMP 98.8; O2SAT 100
[2025-07-04 16:00] VITALS: BP 160/71; TEMP 98.7; O2SAT 100
[2025-07-04 20:00] VITALS: BP 165/76; TEMP 97.9; O2SAT 100
[2025-07-05] VITALS: BP 129/65; TEMP 98.1; O2SAT 100
[2025-07-05 04:00] VITALS: BP 140/71; TEMP 97.7; O2SAT 100
[2025-07-05 08:00] VITALS: BP 126/82; TEMP 97.7; O2SAT 100
[2025-07-05 12:00] VITALS: BP 145/85; TEMP 97.2; O2SAT 100
[2025-07-05 12:05] VITALS: BP 145/85
[2025-07-05 12:05] LABS: CALCIUM, SERUM 8.6 mg/dL (8.5-10.1); CREATININE 0.8 mg/dL (0.6-1.3); SODIUM SERUM 142.0 mmol/L (136-145); UREA NITROGEN, BLOOD 23.0 mg/dL (7-18)
[2025-07-05 12:07] LABS: PLATELET COUNT (AUTO) 165 K/uL (150-450); RED BLOOD CELL COUNT(AUTO) 2.94 MIL/uL (4.5-6.0); RED CELL DISTRIBUTION WIDTH 15.9 % (11.5-15.0); WHITE BLOOD COUNT (AUTO) 3.4 K/uL (4.3-11.0)
[2025-07-05] MEDS ORDERED: DIATR MEGLU/DIATRIZOATE SODIUM 30 ML BOTTLE (GASTROGRAPHIN) ONE (21:47)
[2025-07-06] MEDS ORDERED: MECLIZINE HCL 12.5 MG TABLET GT SCH (09:00)
== END 2025-07-05 17:10 | DRG 870 ==
LOC: ER 13:37 → TELE1 16:31
PROVIDERS: ADMIT Nurse Practitioner Acute Care; ATTEND Nurse Practitioner Acute Care
PROC: 5A1955Z Respiratory Ventilation, Greater than 96 Consecutive Hours (ICD-10-PCS; principal; 2025-07-01)
PROC: 02HV33Z Insertion of Infusion Device into Superior Vena Cava, Percutaneous Approach (ICD-10-PCS; 2025-07-01)
PROC: B548ZZA Ultrasonography of Superior Vena Cava, Guidance (ICD-10-PCS; 2025-07-01)
DX: A41.9 Sepsis, unspecified organism (principal); G93.41 Metabolic encephalopathy; J15.69 Pneumonia due to other Gram-negative bacteria; J96.21 Acute and chronic respiratory failure with hypoxia; N17.0 Acute kidney failure with tubular necrosis; J69.0 Pneumonitis due to inhalation of food and vomit; Z93.0 Tracheostomy status; Z99.11 Dependence on respirator [ventilator] status; N39.0 Urinary tract infection, site not specified; R65.20 Severe sepsis without septic shock; E11.9 Type 2 diabetes mellitus without complications; I10 Essential (primary) hypertension; F03.90 Unspecified dementia, unspecified severity, without behavioral disturbance, psychotic disturbance, mood disturbance, and anxiety; I69.398 Other sequelae of cerebral infarction; D63.8 Anemia in other chronic diseases classified elsewhere; D68.59 Other primary thrombophilia; R13.10 Dysphagia, unspecified; E78.5 Hyperlipidemia, unspecified; Z79.4 Long term (current) use of insulin; Z93.1 Gastrostomy status; Z74.09 Other reduced mobility; E87.5 Hyperkalemia; K59.00 Constipation, unspecified; K52.89 Other specified noninfective gastroenteritis and colitis; Z87.81 Personal history of (healed) traumatic fracture
CPT/HCPCS: 31720; 36415; 36600; 71045-TC; 76770-TC; 80048-TC; 80053-TC; 80076-TC; 80202-TC; 81001; 82272-TC; 82550-TC; 82570-TC; 82803-TC; 82962-TC; 83605-TC; 83735-TC; 83880; 83970; 84100-TC; 84300-TC; 84484-TC; 85025-TC; 85027-TC; 85730-TC; 87040-TC; 87081-TC; 87086-TC; 94002-TC; 94003-TC; 94760-TC; 94762-TC; 94799-TC; 99082-TC; A4223; A4623; G0378; J1644; J1815; J2185; J2470; J2543; J3373; J3374; J7030; J7040; J7042; J7050; J7060; J8597; Q9963